=== PATIENT | female | born 1970 | race Caucasian/White ===

== ENCOUNTER 2017-06-26 10:16 | Emergency (ER) | payer OTHER ==
--- NOTE | 2017-06-26 11:04 | ED Physician Documentation ---
PD HPI FEMALE - Stated complaint Stated Complaint: CRAMPING - Chief complaint Chief Complaint: Abd Pain - History obtained from History obtained from: Patient, Family - History of Present Illness Timing - onset: Today Timing - duration: Hours Timing - details: Abrupt onset, Still present Pain level max: 10 Pain level max: 4 Associated symptoms: Pelvic pain. 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 No: Ovarian cysts Similar symptoms before: Diagnosis (dysmenorhera) Recently seen: Not recently seen - Additional information Additional information: Previously healthy 47-year-old female has had some issues with her menstruation being more painful than usual over the past year and with more bleeding than usual. This morning she had pain so severe it made her sweaty and she vomited. Her pain has reduced from a "13" to a 4 but she is mostly concerned about what this is. Review of Systems Constitutional: denies: Fever Eyes: denies: Decreased vision Ears: denies: Ear pain Nose: denies: Congestion Throat: denies: Sore throat Cardiac: denies: Chest pain / pressure, Palpitations Respiratory: denies: Dyspnea, Cough GI: reports: Abdominal Pain, Nausea, Vomiting. denies: Constipation, Diarrhea : denies: Dysuria, Frequency Skin: denies: Rash Musculoskeletal: denies: Neck pain, Back pain, Extremity pain PD PAST MEDICAL HISTORY - Past Medical History Past Medical History: No - Past Surgical History Past Surgical History: No - Present Medications Home Medications: Ambulatory Orders Medication Instructions Recorded Confirmed No Known Home Medications [No 06/26/17 06/26/17 Known Home Medications] - Allergies Allergies/Adverse Reactions: Allergies Allergy/AdvReac Type Severity Reaction Status Date / Time No Known Drug Allergies Allergy Verified 06/26/17 10:24 - Social History Does the pt smoke?: No Smoking Status: Never smoker Does the pt drink ETOH?: Yes Does the pt have substance abuse?: No - Immunizations Immunizations are current?: No Immunizations: TDAP >10years/unknown - POLST Patient has POLST: No PD ED PE NORMAL - Vitals Vital signs reviewed: Yes (hypertensive) - General General: Alert and oriented X 3, No acute distress, Well developed/nourished - HEENT HEENT: Atraumatic, PERRL, EOMI - Neck Neck: Supple, no meningeal sign, No bony TTP - Cardiac Cardiac: RRR, No murmur - Respiratory Respiratory: No respiratory distress - Abdomen Abdomen: Soft, Non tender - Back Back: No CVA TTP - Derm Derm: Normal color, Warm and dry, No rash - Extremities Extremities: No deformity, No edema - Neuro Neuro: No motor deficit, No sensory deficit Eye Opening: Spontaneous Motor: Obeys Commands Verbal: Oriented GCS Score: 15 - Psych Psych: Normal mood, Normal affect Results - Vitals Vitals: Vital Signs - 24 hr 06/26/17 06/26/17 06/26/17 10:20 10:34 13:40 Temperature 36.5 C Heart Rate 78 72 101 H Respiratory 18 18 16 Rate Blood Pressure 183/95 H 169/81 H 184/97 H O2 Saturation 100 99 100 06/26/17 14:55 Temperature Heart Rate 82 Respiratory 18 Rate Blood Pressure 161/90 H O2 Saturation 100 Oxygen O2 Source Room air - Labs Labs: Laboratory Tests 06/26/17 06/26/17 06/26/17 10:30 10:30 10:55 WBC 11.8 H RBC 3.88 L Hgb 11.3 L Hct 33.8 L MCV 86.9 MCH 29.1 MCHC 33.4 RDW 14.5 Plt Count 274 MPV 8.0 Neut # 10.2 H Lymph # 1.1 L Day # 0.3 Eos # 0.1 Baso # 0.1 Absolute Nucleated RBC 0.00 Nucleated RBC % 0.0 Sodium Potassium Chloride Carbon Dioxide Anion Gap BUN Creatinine Estimated GFR (MDRD) Glucose Calcium Total Bilirubin AST ALT Alkaline Phosphatase Total Protein Albumin Globulin Albumin/Globulin Ratio Lipase Urine Color LT RED Urine Clarity CLOUDY Urine pH 6.0 Ur Specific [place] >=1.030 H >=1.030 H Urine Protein NEGATIVE Urine Glucose (UA) NEGATIVE Urine Ketones NEGATIVE Urine Occult Blood LARGE Urine Nitrite NEGATIVE Urine Bilirubin NEGATIVE Urine Urobilinogen 0.2 (NORMAL) Ur Leukocyte Esterase NEGATIVE Urine RBC TNTC H Urine WBC 4-5 Ur Squamous Epith Cells RARE Squamous Urine Bacteria Rare Ur Microscopic Review INDICATED Urine Culture Comments NOT INDICATED Urine HCG, Qual NEGATIVE 06/26/17 10:55 WBC RBC Hgb Hct MCV MCH MCHC RDW Plt Count MPV Neut # Lymph # Day # Eos # Baso # Absolute Nucleated RBC Nucleated RBC % Sodium 138 Potassium 3.6 Chloride 102 Carbon Dioxide 24 Anion Gap 12.0 BUN 17 Creatinine 0.7 Estimated GFR (MDRD) 90 Glucose 132 H Calcium 8.5 Total Bilirubin 0.5 AST 18 ALT 16 Alkaline Phosphatase 60 Total Protein 7.4 Albumin 4.1 Globulin 3.3 Albumin/Globulin Ratio 1.2 Lipase 18 L Urine Color Urine Clarity Urine pH Ur Specific [place] Urine Protein Urine Glucose (UA) Urine Ketones Urine Occult Blood Urine Nitrite Urine Bilirubin Urine Urobilinogen Ur Leukocyte Esterase Urine RBC Urine WBC Ur Squamous Epith Cells Urine Bacteria Ur Microscopic Review Urine Culture Comments Urine HCG, Qual - Rads (name of study) pelvic ultrasound Radiology: Prelim report reviewed (Impression: 1. The endometrium appears thickened at 17 mm with a diffusely heterogeneous appearance. This could be physiologic or represent endometrial hyperplasia, not excluding an isoelectric endometrial polyp. 2. No Focal uterine fibroids. 3. Ovaries within normal limits.), EMP read indepedently, See rad report PD MEDICAL DECISION MAKING - ED course Complexity details: reviewed old records, reviewed results, re-evaluated patient , considered differential, d/w patient, d/w family ED course: 47-year-old female with acute menstrual cramping with a pain crisis this morning. This appears to have resolved ultrasound of the pelvis is without acute findings. Departure - Departure Disposition: 01 Home, Self Care Clinical Impression: Dysmenorrhea Condition: Stable Instructions: ED Cramping Menstrual Follow-Up: Lazara Lynch DO [Provider Admit Priv/Credential] - Comments: Today in the Emergency Department your blood pressure was elevated. This can happen from the stress of the visit itself, from a current illness or circumstance or from uncontrolled hypertension. If you take blood pressure medications take your usual mediations, have your blood pressure re-checked in an appropriate setting and follow up any elevation with your primary care doctor. Discharge Date/Time: 06/26/17 15:08
[2017-06-26 11:08] LABS: BASOPHILS # (AUTO) 0.1 10^3/uL (0.0-0.1); BASOPHILS % (AUTO) 0.7 %; EOSINOPHILS # (AUTO) 0.1 10^3/uL (0.0-0.7); EOSINOPHILS % (AUTO) 0.8 %; HGB - HEMOGLOBIN 11.3 g/dL (12.0-16.0); LYMPHOCYTES # (AUTO) 1.1 10^3/uL (1.5-3.5); LYMPHOCYTES % (AUTO) 9.4 %; MEAN CORPUSCULAR HEMOGLOBIN 29.1 pg (27.0-31.0); MEAN CORPUSCULAR HGB CONC 33.4 g/dL (32.0-36.0); MEAN CORPUSCULAR VOLUME 86.9 fL (81.0-99.0); MONOCYTES # (AUTO) 0.3 10^3/uL (0.0-1.0); MONOCYTES % (AUTO) 2.7 %; NEUTROPHILS # (AUTO) 10.2 10^3/uL (1.5-6.6); NEUTROPHILS % (AUTO) 86.4 %; PLT - PLATELET COUNT 274 10^3/uL (130-450); RED BLOOD COUNT 3.88 10^6/uL (4.20-5.40); RED CELL DISTRIBUTION WIDTH 14.5 % (12.0-15.0); WHITE BLOOD COUNT 11.8 x10^3/uL (4.8-10.8)
[2017-06-26 11:11] LABS: HCG UR QUAL NEGATIVE
[2017-06-26 11:21] LABS: ALBUMIN 4.1 g/dL (3.2-5.5); ALBUMIN/GLOBULIN RATIO 1.2 (1.0-2.2); BILIRUBIN,TOTAL 0.5 mg/dL (0.2-1.0); CALCIUM 8.5 mg/dL (8.5-10.3); CREATININE 0.7 mg/dL (0.4-1.0); TOTAL PROTEIN 7.4 g/dL (6.7-8.2)
[2017-06-26 11:40] LABS: BILIRUBIN,URINE NEGATIVE (NEGATIVE); CLARITY,URINE CLOUDY (CLEAR); GLUCOSE, URINE (UA) NEGATIVE (NEGATIVE); KETONES,URINE (UA) NEGATIVE (NEGATIVE); LEUKOCYTE ESTERASE, URINE NEGATIVE (NEGATIVE); NITRITE,URINE NEGATIVE (NEGATIVE); OCCULT BLOOD,URINE LARGE (NEGATIVE); PROTEIN,URINE NEGATIVE (NEGATIVE); UROBILINOGEN,URINE 0.2 (NORMAL) E.U./dL (NORMAL)
[2017-06-26 11:41] LABS: BACTERIA,URINE Rare /HPF (None Seen); RBC,URINE TNTC /HPF (0-5); SQUAMOUS EPITHELIAL CELL,UR RARE Squamous (<= Few)
--- NOTE | 2017-06-26 14:10 | Ultrasound Report ---
EXAM: PELVIC ULTRASOUND EXAM DATE: 06/26/2017 01:34 PM. CLINICAL HISTORY: Acute severe pelvic pain . COMPARISON: None. TECHNIQUE: Realtime transabdominal pelvic scan performed to identify the uterus and adnexa and as an overview of other pelvic structures, followed by transvaginal scan to provide greater detail of the u terus and adnexa, with static image documentation. FINDINGS: Uterus: 10.4 x 5 x 5.5 cm, volume 150 cc. Anteverted position. Size within normal limits. Masses: The myometrium is heterogeneous. No discrete measurable mass. Endometrium: 17 mm. The endometrium is heterogeneous with areas which are more hyperechoic. No discre te measurable polyp. Cervix: Unremarkable. Right Ovary: 3.2 x 2.0 x 2.7 cm, volume 9 cc. Follicle or cyst measures 1.9 x 1.1 x 1.3 cm. Blood shay w seen on Doppler. Left Ovary: 2.4 x 2.0 x 1.1 cm, volume 2.7 cc. Normal echotexture and blood flow. Free Fluid: Small Other: None. IMPRESSION: 1. The endometrium appears thickened at 17 mm with a diffusely heterogeneous appearance. This could b e physiologic or represent endometrial hyperplasia, not excluding an isoechoic endometrial polyp. 2. No focal uterine fibroids. 3. Ovaries within normal limits. [facility] Referring Provider Line: [phone] SITE ID: [id number]
[2017-06-26 14:56] VITALS: BP 161/90
== END 2017-06-26 15:08 | disposition home or self-care (01) ==
LOC: ED 10:16
DX: N94.6 Dysmenorrhea, unspecified (principal); R03.0 Elevated blood-pressure reading, without diagnosis of hypertension
CPT/HCPCS: 36415; 76830; 76856; 80053; 81001; 81003; 81025; 83690; 85025; 87086; 93976; 99283

== ENCOUNTER 2019-09-09 11:01 | Emergency (ER) | payer OTHER ==
--- NOTE | 2019-09-09 11:30 | ED Physician Documentation ---
PD HPI URI - Stated complaint Stated Complaint: SOA/COUGH - Chief complaint Chief Complaint: Resp - History obtained from History obtained from: Patient - History of Present Illness Timing - onset: How many weeks ago (1) Timing duration: Weeks (She has had body aches with subsequent non-nausea fevers some diarrhea and cough progressing over the last week with no more notable s hortness of breath the last day or 2. She states she has had less urine output than usual. She is still try to take some fluids. She got significantly more short of breath with activity today. Her is also sick with coded and was tested positive and he has had symptoms about 2-1/2 weeks and also noticed some increasing cough the last day or 2.) Timing details: Gradual onset, Still present Associated symptoms: Fever, Chills, Nasal congestion, Dry cough, Dyspnea, NVD (Nausea and some diarrhea without any vomiting). No: Sore throat, Chest pain, Bilateral edema Contributing factors: Sick contact ( is tested COVID positive about 2 weeks ago.) Improves by: Rest, Medication (not with Mucinex and Tylenol) Worsened by: Activity, Breathing Similar symptoms before: Has not had sx before Review of Systems Constitutional: reports: Fever, Chills Nose: reports: Congestion Cardiac: denies: Chest pain / pressure, Palpitations, Pedal edema, Calf pain Respiratory: reports: Dyspnea, Cough GI: reports: Nausea, Diarrhea. denies: Abdominal Pain, Vomiting : denies: Dysuria Skin: denies: Rash Neurologic: reports: Generalized weakness. denies: Focal weakness, Numbness, Near syncope, Altered mental status PD PAST MEDICAL HISTORY - Past Medical History Cardiovascular: None Respiratory: None Neuro: None Endocrine/Autoimmune: None - Past Surgical History Past Surgical History: No - Present Medications Home Medications: Ambulatory Orders Medication Instructions Recorded Confirmed Albuterol Sulfate [Albuterol 2 puffs IH QID #1 hfa.aer.ad 09/09/19 Sulfate Hfa] Benzonatate [Tessalon Perle] 100 - 200 mg PO TID PRN #30 capsule 09/09/19 Doxycycline Monohydrate 100 mg PO BID #14 tablet 09/09/19 Ondansetron Odt [Zofran] 4 mg TL Q6H PRN #15 tablet 09/09/19 guaiFENesin/CODEINE [Robitussin AC] 10 ml PO Q6H PRN #240 ml 09/09/19 - Allergies Allergies/Adverse Reactions: Allergies Allergy/AdvReac Type Severity Reaction Status Date / Time No Known Drug Allergies Allergy Verified 09/09/19 11:17 - Living Situation Living Situation: reports: With spouse/s.o. Living Arrangement: reports: At home - Social History Does the pt smoke?: No Smoking Status: Never smoker Does the pt drink ETOH?: Yes Does the pt have substance abuse?: No - Family History Family history: reports: CAD. denies: Venous thromboembolism - Immunizations Immunizations are current?: No Immunizations: TDAP >10years/unknown - POLST Patient has POLST: No PD ED PE NORMAL - Vitals Vital signs reviewed: Yes - General General: Alert and oriented X 3, Well developed/nourished, Other (Appears slightly anxious with breathing with some prolonged expiratory phase initial oxygenation is 88% on room air.) - HEENT HEENT: Moist mucous membranes, Pharynx benign - Neck Neck: Supple, no meningeal sign, No adenopathy - Cardiac Cardiac: RRR, No murmur - Respiratory Respiratory: No: Clear bilaterally (Generally not that bad sounding with some expiratory wheezes noted throughout. No crackles at the bases.) - Abdomen Abdomen: Soft, Non tender - Back Back: No CVA TTP - Derm Derm: Normal color, Warm and dry - Extremities Extremities: No deformity, No tenderness to palpate, Normal ROM s pain, No edema, No calf tenderness / cord - Neuro Neuro: Alert and oriented X 3, No motor deficit, Normal speech Eye Opening: Spontaneous Motor: Obeys Commands Verbal: Oriented GCS Score: 15 Results - Vitals Vitals: Vital Signs - 24 hr 09/09/19 09/09/19 09/09/19 11:10 11:17 12:04 Temperature 38.3 C H Heart Rate 93 Respiratory 18 Rate Blood Pressure 171/90 H O2 Saturation 88 L 99 98 09/09/19 09/09/19 12:40 14:00 Temperature Heart Rate 80 87 Respiratory 20 17 Rate Blood Pressure 167/71 H O2 Saturation 96 Oxygen O2 Source Room air Oxygen Flow Rate 2 - Labs Labs: Laboratory Tests 09/09/19 09/09/19 09/09/19 11:40 11:40 11:40 WBC 5.0 RBC 3.82 L Hgb 10.3 L Hct 33.5 L MCV 87.7 MCH 27.0 MCHC 30.7 L RDW 13.9 Plt Count 287 MPV 9.6 Neut # (Auto) 3.4 Lymph # (Auto) 1.0 L [place] # (Auto) 0.3 Eos # (Auto) 0.3 Baso # (Auto) 0.0 Absolute Nucleated RBC 0.00 Nucleated RBC % 0.0 Manual Slide Review Indicated WBC Morphology NORMAL APPEARANCE Platelet Estimate NORMAL (130-450,000) Platelet Morphology NORMAL APPEARANCE RBC Morph Micro Appear NORMAL APPEARANCE Sodium 139 Potassium 3.8 Chloride 106 Carbon Dioxide 25 Anion Gap 8.0 BUN 11 Creatinine 0.7 Estimated GFR (MDRD) 89 Glucose 108 H Calcium 8.2 L Magnesium 1.9 Total Bilirubin 0.4 AST 23 ALT 20 Alkaline Phosphatase 53 Troponin I High Sens 8.2 B-Natriuretic Peptide Total Protein 7.2 Albumin 3.2 Globulin 4.0 Albumin/Globulin Ratio 0.8 L Lipase 19 L 09/09/19 11:40 WBC RBC Hgb Hct MCV MCH MCHC RDW Plt Count MPV Neut # (Auto) Lymph # (Auto) [place] # (Auto) Eos # (Auto) Baso # (Auto) Absolute Nucleated RBC Nucleated RBC % Manual Slide Review WBC Morphology Platelet Estimate Platelet Morphology RBC Morph Micro Appear Sodium Potassium Chloride Carbon Dioxide Anion Gap BUN Creatinine Estimated GFR (MDRD) Glucose Calcium Magnesium Total Bilirubin AST ALT Alkaline Phosphatase Troponin I High Sens B-Natriuretic Peptide 21 Total Protein Albumin Globulin Albumin/Globulin Ratio Lipase - Rads (name of study) chest xray Radiology: Prelim report reviewed (Patchy diffuse infiltrates with groundglass appearance consistent with go Covid pneumonitis. No effusions no pneumothorax.), See rad report PD MEDICAL DECISION MAKING - ED course Complexity details: re-evaluated patient (Her breathing is much more relaxed and her oxygenation is 94 to 96% on room air for the last half hour after the inhaler and meds. She is feeling less nauseated but still some. She feels less general weakness. She was allowed to walk around the room a little bit and she maintained her oxygenation at the same level of 94 to 96% without supplemental. At this point she appears stable for discharge and her preference would be to go home. I talked with her about really having a low threshold for returning if she is having worse trouble breathing as she may be in that escalation phase of the lung inflammation. See how she does in the next 1 or 2 days.), considered differential, d/w patient Departure - Departure Disposition: 01 Home, Self Care Clinical Impression: Pneumonia due to COVID-19 virus Dyspnea Qualifiers: Dyspnea type: shortness of breath Qualified Code(s): R06.02 - Shortness of breath Condition: Stable Record reviewed to determine appropriate education?: Yes Instructions: ED URI Viral W Wheezing, COVID-19 [facility] Prescriptions: Albuterol Sulfate [Albuterol Sulfate Hfa] 2 puffs IH QID #1 hfa.aer.ad Benzonatate [Tessalon Perle] 100 - 200 mg PO TID PRN #30 capsule PRN Reason: Cough Doxycycline Monohydrate 100 mg PO BID #14 tablet guaiFENesin/CODEINE [Robitussin AC] 10 ml PO Q6H PRN #240 ml PRN Reason: Cough Ondansetron Odt [Zofran] 4 mg TL Q6H PRN #15 tablet PRN Reason: Nausea / Vomiting Comments: Your symptoms and chest x-ray are consistent with COVID pneumonia. Given your worsening symptoms, it may be the pneumonitis inflammation worsening. At times it can be a secondary bacterial infection as well. Therefore will add doxycycline antibiotic just in case of a bacterial component. Use the albuterol inhaler 2 puffs or 3 puffs 4 times a day regularly for the next several days and extra times as needed. You can continue with the Mucinex for congestion. Add Tessalon/benzonatate as needed for cough. You can also add codeine cough medicine if needed. Ondansetron every 4-6 hours if needed for nausea. Try to stay well-hydrated. Food as tolerated. I would anticipate plateauing and improvement of your symptoms over the next few days and considerable improvement over the next week. Recheck if not improving well over the next couple of days. Have a low threshold for returning to the ER if you are feeling worse. Your oxygenation level was low coming in but seems to have improved with the inhaler and medicines. However the lung function might worsen to where you need more persistent oxygen in which case you might need to be hospitalized.
[2019-09-09] MEDS ORDERED: ALBUTEROL 1 PUFF INH STA (12:11)
[2019-09-09] MEDS ORDERED: SODIUM CHLORIDE 0.9% 1,000 ML IV ONE (12:11)
[2019-09-09] MEDS ORDERED: ACETAMINOPHEN 325 MG TABLET PO STA (12:11)
[2019-09-09] MEDS ORDERED: ONDANSETRON 4 MG/2 ML VIAL IVP STA (12:11)
[2019-09-09] MEDS ORDERED: KETOROLAC 30 MG/ML VIAL IVP STA (12:13)
[2019-09-09] MEDS ORDERED: BENZONATATE 100 MG CAPSULE PO STA (12:13)
[2019-09-09] MEDS ORDERED: guaiFENesin/CODEINE 5 ML UDC PO STA (12:14)
[2019-09-09 12:22] LABS: BASOPHILS % (AUTO) 0.4 %; EOSINOPHILS # (AUTO) 0.3 10^3/uL (0.0-0.7); EOSINOPHILS % (AUTO) 5.4 %; HGB - HEMOGLOBIN 10.3 g/dL (12.0-16.0); LYMPHOCYTES % (AUTO) 20.9 %; MEAN CORPUSCULAR HGB CONC 30.7 g/dL (32.0-36.0); MEAN CORPUSCULAR VOLUME 87.7 fL (81.0-99.0); MEAN PLATELET VOLUME 9.6 fL (7.9-10.8); MONOCYTES # (AUTO) 0.3 10^3/uL (0.0-1.0); MONOCYTES % (AUTO) 5.2 %; NEUTROPHILS # (AUTO) 3.4 10^3/uL (1.5-6.6); NEUTROPHILS % (AUTO) 67.7 %; PLT - PLATELET COUNT 287 10^3/uL (130-450); RED BLOOD COUNT 3.82 10^6/uL (4.20-5.40); RED CELL DISTRIBUTION WIDTH 13.9 % (12.0-15.0)
[2019-09-09 12:35] LABS: ALBUMIN 3.2 g/dL (3.2-5.5); ALBUMIN/GLOBULIN RATIO 0.8 (1.0-2.2); BILIRUBIN,TOTAL 0.4 mg/dL (0.2-1.0); CALCIUM 8.2 mg/dL (8.5-10.3); CREATININE 0.7 mg/dL (0.4-1.0); MAGNESIUM 1.9 mg/dL (1.7-2.8); TOTAL PROTEIN 7.2 g/dL (6.7-8.2)
[2019-09-09 12:47] LABS: PLATELET ESTIMATE, MANUAL NORMAL (130-450,000) (NORMAL); PLATELET MORPHOLOGY NORMAL APPEARANCE (NORMAL)
[2019-09-09 12:48] LABS: RBC MORPHOLOGY (MULTIPLE) NORMAL APPEARANCE (NORMAL)
--- NOTE | 2019-09-09 13:04 | XRAY Report ---
Reason: cough and dyspnea Procedure Date: 09/09/2019 Accession Number: [id number] / [id number] Procedure: XR - Chest 1 View X-Ray CPT Code: 10417 Final Report FULL RESULT: EXAM: CHEST RADIOGRAPHY EXAM DATE: 09/09/2019 12:29 PM. CLINICAL HISTORY: Cough and dyspnea. COMPARISON: None. TECHNIQUE: 1 view. FINDINGS: Lungs/Pleura: Abnormal patchy airspace disease seen in both lungs. No pleural effusion. Mediastinum: Within exam limitations, the cardiomediastinal contour is normal. Other: None. IMPRESSION: 1. Abnormal patchy airspace disease in both lungs. No pleural effusions. [facility]
[2019-09-09 14:01] VITALS: BP 167/71
[2019-09-09] MEDS ORDERED: PROMETHAZINE INJ 12.5 MG in SODIUM CHLORIDE 0.9% 50 ML IV STA (14:01)
== END 2019-09-09 15:08 | disposition home or self-care (01) ==
LOC: ED 11:01
DX: U07.1 COVID-19 (principal); J12.89 Other viral pneumonia; R06.02 Shortness of breath
CPT/HCPCS: 36415; 71045; 80053; 83690; 83735; 83880; 84484; 85025; 94640; 94664; 96361; 96365; 96375; 99284; 99285; A9270; J7040

== ENCOUNTER 2020-11-06 09:55 | Outpatient (CLI) | payer OTHER ==
--- NOTE | 2020-11-06 10:44 | XRAY Report ---
PROCEDURE: Chest 2 View X-Ray INDICATIONS: AMB TECHNIQUE: 2 view(s) of the chest. COMPARISON: 09/09/2019 chest x-ray FINDINGS: Surgical changes and devices: None. Lungs and pleura: No pleural effusions or pneumothorax. Lungs are clear. Mediastinum: Mediastinal contours are normal. Heart size is enlarged. Bones and chest wall: No suspicious bony abnormalities. Soft tissues appear unremarkable. IMPRESSION: 1. Cardiomegaly. 2. No acute process. Reviewed by: Svetlana Galeas MD on 11/06/2020 10:43 AM PDT Approved by: Svetlana Galeas MD on 11/06/2020 10:43 AM PDT Station ID: [id number]
== END 2020-11-06 23:59 | disposition home or self-care (01) ==
LOC: DI.N 09:55
PROVIDERS: ATTEND Family Medicine
DX: I51.7 Cardiomegaly (principal)

== ENCOUNTER 2020-11-07 09:25 | Outpatient (CLI) | payer OTHER ==
[2020-11-07 09:50] LABS: BASOPHILS # (AUTO) 0.1 10^3/uL (0.0-0.1); BASOPHILS % (AUTO) 1.2 %; EOSINOPHILS # (AUTO) 0.3 10^3/uL (0.0-0.7); EOSINOPHILS % (AUTO) 3.9 %; HCT - HEMATOCRIT 21.1 % (37.0-47.0); LYMPHOCYTES # (AUTO) 1.7 10^3/uL (1.5-3.5); LYMPHOCYTES % (AUTO) 26.5 %; MEAN CORPUSCULAR HEMOGLOBIN 24.4 pg (27.0-31.0); MEAN CORPUSCULAR HGB CONC 28.4 g/dL (32.0-36.0); MEAN CORPUSCULAR VOLUME 85.8 fL (81.0-99.0); MEAN PLATELET VOLUME 9.1 fL (7.9-10.8); MONOCYTES # (AUTO) 0.3 10^3/uL (0.0-1.0); MONOCYTES % (AUTO) 4.8 %; NEUTROPHILS # (AUTO) 4.1 10^3/uL (1.5-6.6); NEUTROPHILS % (AUTO) 63.1 %; PLT - PLATELET COUNT 378 10^3/uL (130-450); RED BLOOD COUNT 2.46 10^6/uL (4.20-5.40); RED CELL DISTRIBUTION WIDTH 15.9 % (12.0-15.0); WHITE BLOOD COUNT 6.4 x10^3/uL (4.8-10.8)
[2020-11-07 10:06] LABS: ALBUMIN 3.6 g/dL (3.2-5.5); ALKALINE PHOSPHATASE 54 IU/L (42-121); ALT ALANINE AMINOTRANSFERASE 16 IU/L (10-60); AST ASPARTATE AMINOTRANSFERASE 15 IU/L (10-42); BILIRUBIN,TOTAL 0.5 mg/dL (0.2-1.0); BUN - BLOOD UREA NITROGEN 17 mg/dL (6-20); CALCIUM 7.9 mg/dL (8.5-10.3); CARBON DIOXIDE - CO2 22 mmol/L (21-32); CHLORIDE 105 mmol/L (101-111); CHOL/HDL RATIO 2.4 (<4.4); CHOLESTEROL 173 mg/dL; CREATININE 0.8 mg/dL (0.4-1.0); GFR - MDRD 76 (>89); GLUCOSE 118 mg/dL (70-100); HDL CHOLESTEROL 72 mg/dL; LDL CHOLESTEROL,CALCULATED 83 mg/dL; LDL/HDL RATIO 1.2 (<4.4); SODIUM 134 mmol/L (135-145); TOTAL PROTEIN 7.1 g/dL (6.7-8.2); TRIGLYCERIDES 90 mg/dL; VLDL CHOLESTEROL 18 mg/dL
[2020-11-07 10:18] LABS: THYROID STIMULATING HORMONE 3.87 uIU/mL (0.34-5.60)
== END 2020-11-07 09:26 | disposition home or self-care (01) ==
LOC: LAB 09:25
PROVIDERS: ATTEND Family Medicine
DX: I11.9 Hypertensive heart disease without heart failure (principal); R00.0 Tachycardia, unspecified; R06.02 Shortness of breath; F41.9 Anxiety disorder, unspecified
CPT/HCPCS: 36415; 80053; 80061; 83721; 84443; 85025

== ENCOUNTER 2020-11-07 12:02 | Observation (INO) | payer OTHER ==
--- NOTE | 2020-11-07 12:39 | ED Physician Documentation ---
History of Present Illness - Stated complaint Stated Complaint: CRITICAL LAB/SENT BY DR - Chief complaint Chief Complaint: General - History obtained from History obtained from: Patient - Additonal information Additional information: 50-year-old woman with past medical history of high blood pressure, Covid last year, abnormal uterine bleeding currently going through menopause, presents with severe anemia on outpatient lab work done by the walk-in clinic Dr. Ratliff. Patient reports for the past several months she has had dyspnea on exertion and fatigue and she went to walk-in to have it evaluated and was told to come here due to abnormal lab value. She denies lightheadedness, syncope, rectal bleeding, hemoptysis or other issues. She does report that she is currently menstruating and has been straining for the past 2 months, often heavily. At its peak, she is going through 12 pads a day. At present she has used 3 pads this morning. denies other symptoms. Review of Systems Ten Systems: 10 systems reviewed and negative PD PAST MEDICAL HISTORY - Past Medical History Cardiovascular: None Respiratory: None Neuro: None Endocrine/Autoimmune: None - Past Surgical History Past Surgical History: No - Present Medications Home Medications: Ambulatory Orders Medication Instructions Recorded Confirmed Albuterol Sulfate [Albuterol 2 puffs IH QID #1 hfa.aer.ad 09/09/19 Sulfate Hfa] Benzonatate [Tessalon Perle] 100 - 200 mg PO TID PRN #30 capsule 09/09/19 Doxycycline Monohydrate 100 mg PO BID #14 tablet 09/09/19 Ondansetron Odt [Zofran] 4 mg TL Q6H PRN #15 tablet 09/09/19 guaiFENesin/CODEINE [Robitussin AC] 10 ml PO Q6H PRN #240 ml 09/09/19 - Allergies Allergies/Adverse Reactions: Allergies Allergy/AdvReac Type Severity Reaction Status Date / Time No Known Drug Allergies Allergy Verified 11/07/20 12:16 - Social History Does the pt smoke?: No Smoking Status: Never smoker Does the pt drink ETOH?: Yes Does the pt have substance abuse?: No - Immunizations Immunizations are current?: No Immunizations: TDAP >10years/unknown - POLST Patient has POLST: No PD ED PE NORMAL - Vitals Vital signs reviewed: Yes - General General: Alert and oriented X 3, No acute distress, Well developed/nourished - HEENT HEENT: Atraumatic, PERRL, EOMI - Neck Neck: Supple, no meningeal sign - Cardiac Cardiac: RRR - Respiratory Respiratory: No respiratory distress, Clear bilaterally - Abdomen Abdomen: Non tender, Non distended - Derm Derm: Normal color, Warm and dry - Extremities Extremities: No deformity - Neuro Neuro: Alert and oriented X 3 - Psych Psych: Normal mood, Normal affect Results - Vitals Vitals: Vital Signs - 24 hr 11/07/20 12:07 Temperature 36.8 C Heart Rate 90 Respiratory 18 Rate Blood Pressure 184/113 H O2 Saturation 99 Oxygen O2 Source Room air PD MEDICAL DECISION MAKING - ED course ED course: Discussed with And show to for admission to observation for blood transfusion and [employer] consult. Patient agreeable to stay. Departure - Departure Disposition: ED Place in Observation Clinical Impression: Symptomatic anemia, History of heavy vaginal bleeding Condition: Stable
[2020-11-07] MEDS ORDERED: ACETAMINOPHEN 325 MG TABLET PO PRN (12:51)
[2020-11-07] MEDS ORDERED: IBUPROFEN 600 MG TABLET PO PRN (12:51)
[2020-11-07] MEDS ORDERED: SODIUM CHLORIDE FLUSH 0.9% 10 ML SYRINGE IVP PRN (12:51)
[2020-11-07 12:59] LABS: BASOPHILS # (AUTO) 0.1 10^3/uL (0.0-0.1); BASOPHILS % (AUTO) 1.5 %; EOSINOPHILS # (AUTO) 0.2 10^3/uL (0.0-0.7); EOSINOPHILS % (AUTO) 2.8 %; HCT - HEMATOCRIT 20.9 % (37.0-47.0); LYMPHOCYTES # (AUTO) 2.2 10^3/uL (1.5-3.5); LYMPHOCYTES % (AUTO) 27.1 %; MEAN CORPUSCULAR HEMOGLOBIN 24.6 pg (27.0-31.0); MEAN CORPUSCULAR HGB CONC 29.2 g/dL (32.0-36.0); MEAN CORPUSCULAR VOLUME 84.3 fL (81.0-99.0); MEAN PLATELET VOLUME 10.1 fL (7.9-10.8); MONOCYTES # (AUTO) 0.5 10^3/uL (0.0-1.0); NEUTROPHILS # (AUTO) 5.1 10^3/uL (1.5-6.6); NEUTROPHILS % (AUTO) 62.2 %; PLT - PLATELET COUNT 421 10^3/uL (130-450); RED BLOOD COUNT 2.48 10^6/uL (4.20-5.40); RED CELL DISTRIBUTION WIDTH 15.9 % (12.0-15.0); WHITE BLOOD COUNT 8.2 x10^3/uL (4.8-10.8)
[2020-11-07 13:00] LABS: INR 1.2 (0.8-1.2); PT - PROTHROMBIN TIME 12.8 secs (9.9-12.6)
[2020-11-07 13:01] LABS: HGB - HEMOGLOBIN 6.1 g/dL (12.0-16.0)
[2020-11-07 13:08] LABS: ALBUMIN 3.6 g/dL (3.2-5.5); ALBUMIN/GLOBULIN RATIO 1.1 (1.0-2.2); BILIRUBIN,TOTAL 0.4 mg/dL (0.2-1.0); CREATININE 0.7 mg/dL (0.4-1.0); POTASSIUM 3.8 mmol/L (3.5-5.0)
[2020-11-07] MEDS ORDERED: ONDANSETRON 4 MG/2 ML VIAL IVP PRN (13:56)
[2020-11-07] MEDS ORDERED: METOPROLOL SUCCINATE 25 MG TABLET PO SCH ×2 (14:00→14:10)
[2020-11-07] MEDS ORDERED: hydrALAZINE INJ 20 MG/ML VIAL IVP PRN ×2 (14:01→15:19)
[2020-11-07 14:02] LABS: B. PARAPERTUSSIS- RESP PCR PAN NOT DETECTED; B. PERTUSSIS- RESP PCR PANEL NOT DETECTED; C. PNEUMONIAE- RESP PCR PANEL NOT DETECTED; CORONAVIRUS 229E-RESP PCR NOT DETECTED; CORONAVIRUS HKU1-RESP PCR NOT DETECTED; CORONAVIRUS NL63-RESP PCR NOT DETECTED; CORONAVIRUS OC43-RESP PCR NOT DETECTED; HUMAN METAPNEUMOVIRUS NOT DETECTED; INFLUENZA A- RESP PCR PANEL NOT DETECTED; INFLUENZA B - RESP PCR PANEL NOT DETECTED; M. PNEUMONIAE- RESP PCR PANEL NOT DETECTED; PARAINFLUENZA VIRUS 1 NOT DETECTED; PARAINFLUENZA VIRUS 2 NOT DETECTED; PARAINFLUENZA VIRUS 3 NOT DETECTED; PARAINFLUENZA VIRUS 4 NOT DETECTED; RHINOVIRUS/ENTEROVIRUS NOT DETECTED; RSV- RESP PCR PANEL NOT DETECTED; SARS-CoV-2 -RESP PCR PANEL NOT DETECTED
--- NOTE | 2020-11-07 14:04 | HISTORY & PHYSICAL EXAMINATION ---
Chief Complaint - Chief Complaint Chief Complaint: SENT BY for CRITICAL LAB History of Present Illness - Admitted From Admitted From:: ER - History Obtained From Records Reviewed: [facility] History obtained from: pt Exam Limitations: no - History of Present Illness HPI Comment/Other: This is a 50-year-old female with past medical history of high blood pressure, Covid positive on last year, Menorrhagia. pt was sent by walk-in Clinic for her low HGB. pt report she usually had heavy menstrual bleeding and needed 12 pads a day. pt report she is in the going through menopause but in the recently two months she continue to have on and off menstrual bleeding and not stopped and she felt very tired as well. Yesterday she went to walk-in Clinic to check it out, and had blood test. pt was informed to go to ER for her abnormal lab value. pt was found to have HGB 6.1. pt denies chest pain, headache, fever, chill, abdominal pain, nausea, vomiting or diarrhea. Discussed the care goal with the patient, patient requests full code History - Past Medical History Cardiovascular: reports: None Respiratory: reports: None Neuro: reports: None Endocrine/Autoimmune: reports: None MRSA Hx?: No - Family & Social History Family History: Mother: Alive and Well, Father: Alive and Well Family History Comment/Other: Patient report both her parents are alive, her father has 73 years old with prostate and kidney problem. Her mother has 70 years old with pre-diabetic Social History Notes: Patient denies history of cigarette smoking, alcohol or drug issue - POLST Patient has POLST: No Meds/Allgy - Home Medications Home Medications: Ambulatory Orders Medication Instructions Recorded Confirmed Metoprolol Succinate [Toprol Xl] 25 mg PO DAILY 11/07/20 11/07/20 - Allergies Allergies/Adverse Reactions: Allergies Allergy/AdvReac Type Severity Reaction Status Date / Time No Known Drug Allergies Allergy Verified 11/07/20 12:16 Review of Systems - Constitutional Constitutional: reports: Fatigue. denies: Fever, Chills, Weakness, Poor appetite, Diaphoresis - Eyes Eyes: denies: Pain, Blurred vision, Field loss, Vision loss - Ears, Nose & Throat Ears, Nose & Throat: denies: Ear pain, Vertigo, Nosebleeds, Bleeding gums - Cardiovascular Cariovascular: denies: Irregular heart rate, Palpitations, Chest pain, Edema, Lightheadedness, Syncope, Exertional dyspnea, Decr. exercise tolerance - Respiratory Respiratory: denies: Cough, Sputum production, Wheezing, Hemoptysis, Orthopnea, SOB at rest, SOB with exertion - Gastrointestinal Gastrointestinal: denies: Abdominal pain, Diarrhea, Rectal bleeding, Black stools, Bloody stools, Nausea, Vomiting - Genitourinary Genitourinary: denies: Dysuria, Urgency, Hematuria, Incontinence - Musculoskeletal Musculoskeletal: denies: Muscle pain, Muscle aches, Limited range of motion - Integumentary Integumentary: denies: Rash, Lesions, Lumps - Neurological Neurological: denies: General weakness, Focal weakness, Headache, Dizziness, Numbness, Memory problems, Pre-existing deficit, Abnormal gait, Seizures, Incoordination, Slurred speech - Psychiatric Psychiatric: denies: Depression, Delusions - Endocrine Endocrine: denies: Polyuria, Polyphagia - Hematologic/Lymphatic Hematologic/Lymphatic: denies: Anemia, Blood clots Prior Level of Functionality: Patient is fully independent in the home Exam - Vital Signs Vital Signs: Vital Signs x48h Temp Pulse Resp BP Pulse Ox 11/07/20 12:07 36.8 C 90 18 184/113 H 99 - Physical Exam General Appearance: positive: No acute distress, Alert. negative: Lethargic Eyes Bilateral: positive: Normal inspection, PERRL, No lid inflammation ENT: positive: ENT inspection nml, No signs of dehydration. negative: Purulent nasal drainage Neck: positive: Nml inspection, Trachea midline. negative: Thyromegaly, Tracheal deviation Respiratory: positive: Chest non-tender, No respiratory distress, Breath sounds nml. negative: Wheezes, Rales Cardiovascular: positive: Regular rate & rhythm, No murmur. negative: Tachycardia, Bradycardia, Systolic murmur, Diastolic murmur Peripheral Pulses: positive: 2+ Abdomen: positive: Non-tender, Nml bowel sounds, No distention. negative: Tenderness Back: positive: Nml inspection. negative: CVA tenderness (R), CVA tenderness (L) Skin: positive: Color nml, Warm, Dry. negative: Cyanosis, Diaphoresis, Pallor Extremities: positive: Non-tender, Full ROM, Nml appearance. negative: Calf tenderness Neurologic/Psychiatric: positive: Oriented x3, Motor nml, Sensation nml, Mood/affect nml. negative: Weakness, Sensory loss, Facial droop, Slurred/abnml speech, Depressed mood/affect Sepsis Event Note (H) - Evaluation Current Stage of Sepsis: Ruled out Conclusion/Plan - Problem List (1) Symptomatic anemia Conclusion/Plan: Patient reported she feel really tired for 2 months. She was found to have hemoglobin 6.1 on today. She reported she had abnormal menstruation for about a 2 months. MCV is 84, we will transfusion blood for patient, once Provera for pt, we will have anemia study for patient. We will have H&H to monitor hemoglobin. We will consult with [employer] [facility]. (2) Menorrhagia Conclusion/Plan: Patient report she had constant menstruation for about 2 months. HGB is 6.1 on today. pt was given once Provera, we will Consult with [facility] [facility]. Per [employer] [facility], we will keep patient on n.p.o. Order ultrasound of pelvis and Transvaginal. we will followup with [employer] [facility]. (3) HTN (hypertension) Conclusion/Plan: Patient has a history of hypertension, will resume home metoprolol, add Hydralazine Intravenous as needed - Lab Results Fish Bones: 11/07/20 12:40 11/07/20 12:40 Core Measures - Anticipated LOS I expect patient to be DC'd or transferred within 96 hours.: Yes - DVT/VTE - Prophylaxis VTE/DVT Device ordered at admit?: Yes VTE/DVT Prophylaxis med ordered at admit?: Yes
[2020-11-07 15:22] LABS: ABSOLUTE RETICS # AUTO 0.051 10^6/uL (0.020-0.110); RED BLOOD COUNT 2.46 10^6/uL (4.20-5.40); RETICULOCYTE COUNT % (AUTO) 2.06 % (0.5-2.3)
[2020-11-07 15:53] LABS: % IRON SATURATION 3 % (20-50); IRON 18 ug/dL (28-170); TOTAL IRON BINDING CAPACITY 532 ug/dL (250-450); TRANSFERRIN 380 mg/dL (192-382)
[2020-11-07] MEDS: SODIUM CHLORIDE FLUSH 0.9% 10 ML SYRINGE IVP SCH (16:43)
[2020-11-07] MEDS ORDERED: CYANOCOBALAMIN 1,000 MCG/ML VIAL IM ONE (16:50)
[2020-11-07] MEDS: amLODIPine 5 MG TABLET PO SCH (17:21)
[2020-11-07] MEDS: FERROUS SULFATE 325 MG TABLET PO SCH (17:21)
--- NOTE | 2020-11-07 18:22 | Ultrasound Report ---
PROCEDURE: Pelvic Complete INDICATIONS: menometrorrhagia TECHNIQUE: Real-time transabdominal and transvaginal scanning was performed of the pelvic organs, with image doc umentation. COMPARISON: None. FINDINGS: Uterus: Uterus is anteverted and normal in size at 12.6 x 7.5 x 5.5 cm. Volume of 264 cc. No fibroid s seen. Endometrium measures 14 mm in combined thickness. Homogeneous appearance. Ovaries: Within normal limits. Right ovary measures 4 x 2.4 x 2.3 cm, volume of 12 cc. -Right ovarian simple cyst measuring 2 cm. Left ovary measures 5.4 x 3.7 x 3.7 cm, volume of 39 cc. -Left ovarian simple cyst measuring 3.2 cm. Other: No free pelvic fluid. IMPRESSION: 1. Prominent uterus. No fibroids seen. 2. Homogeneous endometrium measures 1.4 cm. 3. Ovaries are within normal limits. Reviewed by: Hansel Purcell MD on 11/07/2020 6:21 PM PDT Approved by: Hansel Purcell MD on 11/07/2020 6:21 PM PDT Station ID: [id number]
--- NOTE | 2020-11-07 20:11 | CONSULTATION NOTE ---
Referring Provider Name of Referring Provider:: Dr. Farris Consult Date: 11/07/20 Chief Complaint - Chief Complaint Chief Complaint: Severe menorrhagia with presumed acute blood loss anemia History of Present Illness - Admitted From Admitted From:: Er - History Obtained From History obtained from: patient - History of Present Illness HPI Comment/Other: Patient is a 50 yo who presented from the walk in clinic with severe anemia secondary to ongoing DUB. Patient reports that she continues to have monthly menses but cycles have become irregular and heavy. Has been soaking a pad an hour for several days. Has gone through three pads this am. Also has severe lower back pain prior to onset of mesnes. She is actively bleeding at present. Has been bleeding for 2 days. Had no bleeding two days prior to that. Had been bleeding daily for an unclear period of time prior to the 2 day break. Presented to [facility] with severe fatigue and found to have a HCT of 20. Seen [facility] yesterday for SOB, fatigue, and malaise. Was diagnosed with HTN and started on antihypertensives yesterday. Unsure of name, thinks of was metoprolol. Had EKG and CXR. Denies any other significant PMH. Has been avoiding medical care. Thinks her last pap smear was 20 years ago. Had an abnormal pap smear with normal follow-up. Reports she had a pelvic us about 2 years ago but nothing was done about presumably normal findings, per her report. No STIs. PMH: HTN PSH: none OBHX: ; x2 Remote hx of abnormal pap smear Last pap 2000, wnl No STIs SOC HX: Lives in [place] with , son, and 2 grandchildren. Works for [employer] as the [employer] T: none E: MideoMe every other day D: none FAMILY HX: DM: none Cancer: none CVD: GF Mother: anemia and hypoglycemia Father: renal failure 2/2 prostate issues History - Past Medical History Cardiovascular: reports: None Respiratory: reports: None Neuro: reports: None Endocrine/Autoimmune: reports: None MRSA Hx?: No - Family & Social History Family History: Mother: Alive and Well, Father: Alive and Well Family History Comment/Other: Patient report both her parents are alive, her father has 73 years old with prostate and kidney problem. Her mother has 70 years old with pre-diabetic Social History Notes: Patient denies history of cigarette smoking, alcohol or drug issue - POLST Patient has POLST: No Meds/Allgy - Home Medications Home Medications: Ambulatory Orders Medication Instructions Recorded Confirmed Metoprolol Succinate [Toprol Xl] 25 mg PO DAILY 11/07/20 11/07/20 - Allergies Allergies/Adverse Reactions: Allergies Allergy/AdvReac Type Severity Reaction Status Date / Time No Known Drug Allergies Allergy Verified 11/07/20 12:16 Review of Systems - Other Findings Other Findings: As per HPI, otherwise remaining systems are negative. Exam - Vital Signs Reviewed Vital Signs: Yes Vital Signs: Vital Signs x48h Temp Pulse Pulse Resp BP BP Pulse Ox 11/07/20 19:37 166/80 H 11/07/20 18:40 97.9 F 83 176/88 H 11/07/20 18:37 80 174/80 H 11/07/20 18:35 80 168/84 H 11/07/20 18:30 79 162/78 H 11/07/20 18:25 78 169/80 H 11/07/20 18:20 79 175/89 H 11/07/20 18:13 174/88 H 11/07/20 18:11 97.9 F 78 18 174/88 H 11/07/20 17:59 98.1 F 77 19 161/91 H 11/07/20 16:42 164/95 H 11/07/20 16:01 97.7 F 81 18 97 11/07/20 16:00 97.7 F 77 18 165/94 H 100 11/07/20 15:45 97.7 F 81 14 171/91 H 11/07/20 15:32 97.7 F 77 18 165/94 H 11/07/20 15:24 97.7 F 78 18 165/94 H 11/07/20 12:07 98.2 F 90 18 184/113 H 99 - Physical Exam General Appearance: positive: No acute distress Respiratory: positive: No respiratory distress Cardiovascular: positive: Other Neurologic/Psychiatric: positive: Oriented x3 Conclusion/Plan - Diagnosis Diagnosis: Severe menorrhagia. Symptomatic anemia - Plan Plan: 50 yo who presented with symptomatic anemia, hypertension , and ongoing menorrhagia Admitted to observation for transfusion -Recommend pelvic us--> EMS 14 mm Medroxyprogesterone 10 mg po x1 daily to reduce bleeding -Ok to increase dosing to 20-30 mg po daily to manage bleeding Recommend hysteroscopy D&C after completion of transfusion -Will likely return with acute blood loss anemia in absence of intervention -NPO at present -If unable to complete transfusion within timely manner, allow patient to eat and then keep NPO for potential add on tomorrow am. Recommend completion of pap smear at time of hysteroscopy D&C High concern for potential malignant process given risk profile and severity of presentation. Thank you for including me in the care of this patient. - Lab Results Fish Bones: 11/07/20 12:40 11/07/20 12:40 - Diagnostic Imaging Results Diagnostic Imaging Results Comments: Pelvic us shows 14 mm EMS
[2020-11-07] MEDS: DEXTROSE 5%-0.9% NACL 1,000 ML IV SCH (21:56)
[2020-11-07 22:43] LABS: HCT - HEMATOCRIT 24.3 % (37.0-47.0); HGB - HEMOGLOBIN 7.6 g/dL (12.0-16.0)
[2020-11-08] MEDS: SODIUM CHLORIDE FLUSH 0.9% 10 ML SYRINGE IVP SCH ×2 (00:05→07:47)
[2020-11-08 05:20] LABS: BASOPHILS # (AUTO) 0.1 10^3/uL (0.0-0.1); BASOPHILS % (AUTO) 1.4 %; EOSINOPHILS # (AUTO) 0.3 10^3/uL (0.0-0.7); EOSINOPHILS % (AUTO) 3.7 %; HCT - HEMATOCRIT 25.3 % (37.0-47.0); HGB - HEMOGLOBIN 7.5 g/dL (12.0-16.0); LYMPHOCYTES # (AUTO) 2.2 10^3/uL (1.5-3.5); LYMPHOCYTES % (AUTO) 30.6 %; MEAN CORPUSCULAR HEMOGLOBIN 25.5 pg (27.0-31.0); MEAN CORPUSCULAR HGB CONC 29.6 g/dL (32.0-36.0); MEAN CORPUSCULAR VOLUME 86.1 fL (81.0-99.0); MONOCYTES # (AUTO) 0.5 10^3/uL (0.0-1.0); MONOCYTES % (AUTO) 6.3 %; NEUTROPHILS # (AUTO) 4.2 10^3/uL (1.5-6.6); NEUTROPHILS % (AUTO) 57.6 %; PLT - PLATELET COUNT 379 10^3/uL (130-450); RED BLOOD COUNT 2.94 10^6/uL (4.20-5.40); RED CELL DISTRIBUTION WIDTH 15.6 % (12.0-15.0); WHITE BLOOD COUNT 7.3 x10^3/uL (4.8-10.8)
[2020-11-08 05:24] LABS: CREATININE 0.8 mg/dL (0.4-1.0); POTASSIUM 4.1 mmol/L (3.5-5.0)
[2020-11-08] MEDS: amLODIPine 5 MG TABLET PO SCH (07:44)
[2020-11-08] MEDS: FERROUS SULFATE 325 MG TABLET PO SCH (07:44)
--- NOTE | 2020-11-08 09:10 | PROVIDER PROGRESS NOTE ---
Subjective - Prog Note Date Prog Note Date: 11/08/20 Prog Note Time: 09:08 - Subjective Subjective: Patient has recevied 2 units of PRBC overnight with appropriate rise in HCT. Also receiving IV iron and B12. Feels better this am. Minimal bleeding on proge sterone. NPO since midnight. Blood pressure under better control this am. Objective - Vital Signs/Intake & Output Reviewed Vital Signs: Yes Vital Signs: Vital Signs x48h Temp Pulse Resp BP Pulse Ox 11/08/20 07:35 98.1 F 84 16 151/78 H 98 11/08/20 05:00 99.1 F 76 16 149/79 H 97 Intake & Output: Intake & Output 11/05/20 11/06/20 11/07/20 11/08/20 23:59 23:59 23:59 23:59 Intake Total 1975 Balance 1974 - Objective General Appearance: positive: No acute distress Respiratory: positive: No respiratory distress Cardiovascular: positive: Other (RR) Skin: positive: Pallor Neurologic/Psychiatric: positive: Oriented x3 - Lab Results Fish Bones: 11/08/20 04:53 11/08/20 04:53 Other Labs: Lab Results x24hrs 11/08/20 11/08/20 11/07/20 Range/Units 04:53 04:53 22:35 WBC 7.3 (4.8-10.8) x10^3/uL RBC 2.94 L (4.20-5.40) 10^6/uL Hgb 7.5 L 7.6 L (12.0-16.0) g/dL Hct 25.3 L 24.3 L (37.0-47.0) % MCV 86.1 (81.0-99.0) fL MCH 25.5 L (27.0-31.0) pg MCHC 29.6 L (32.0-36.0) g/dL RDW 15.6 H (12.0-15.0) % Plt Count 379 (130-450) 10^3/uL MPV 10.0 (7.9-10.8) fL Reticulocyte % (Auto) (0.5-2.3) % Neut # (Auto) 4.2 (1.5-6.6) 10^3/uL Lymph # (Auto) 2.2 (1.5-3.5) 10^3/uL Saline # (Auto) 0.5 (0.0-1.0) 10^3/uL Eos # (Auto) 0.3 (0.0-0.7) 10^3/uL Baso # (Auto) 0.1 (0.0-0.1) 10^3/uL Absolute Nucleated RBC 0.00 x10^3/uL Nucleated RBC % 0.0 /100WBC Absolute Retic (0.020-0.110) 10^6/uL PT (9.9-12.6) secs INR (0.8-1.2) APTT (24.9-33.3) secs Sodium 138 (135-145) mmol/L Potassium 4.1 (3.5-5.0) mmol/L Chloride 108 (101-111) mmol/L Carbon Dioxide 22 (21-32) mmol/L Anion Gap 8.0 (6-13) BUN 16 (6-20) mg/dL Creatinine 0.8 (0.4-1.0) mg/dL Estimated GFR (MDRD) 76 L (>89) Glucose 124 H (70-100) mg/dL Calcium 8.0 L (8.5-10.3) mg/dL Iron (28-170) ug/dL TIBC (250-450) ug/dL % Saturation (20-50) % Transferrin (192-382) mg/dL Ferritin (11.0-306.8) ng/mL Total Bilirubin (0.2-1.0) mg/dL AST (10-42) IU/L ALT (10-60) IU/L Alkaline Phosphatase (42-121) IU/L Lactate Dehydrogenase (91-225) IU/L Total Protein (6.7-8.2) g/dL Albumin (3.2-5.5) g/dL Globulin (2.1-4.2) g/dL Albumin/Globulin Ratio (1.0-2.2) Lipase (22-51) U/L Vitamin B12 (180-914) pg/mL Nasal Adenovirus (PCR) Nasal B. parapertussis DNA (PCR) Nasal Coronavir 229E PCR Nasal Coronavir HKU1 PCR Nasal Coronavir NL63 PCR Nasal Coronavir OC43 PCR Nasal Enterovir/Rhinovir PCR Nasal Influenza B PCR Nasal Influenza A PCR Nasal Parainfluen 1 PCR Nasal Parainfluen 2 PCR Nasal Parainfluen 3 PCR Nasal Parainfluen 4 PCR Nasal RSV (PCR) Nasal B.pertussis DNA PCR Nasal C.pneumoniae (PCR) Marlo Human Metapneumo PCR Nasal M.pneumoniae (PCR) Nasal SARS-CoV-2 (PCR) Blood Type Blood Type Recheck Antibody Screen Crossmatch IS Only 11/07/20 11/07/20 11/07/20 Range/Units 13:00 12:40 12:40 WBC (4.8-10.8) x10^3/uL RBC (4.20-5.40) 10^6/uL Hgb (12.0-16.0) g/dL Hct (37.0-47.0) % MCV (81.0-99.0) fL MCH (27.0-31.0) pg MCHC (32.0-36.0) g/dL RDW (12.0-15.0) % Plt Count (130-450) 10^3/uL MPV (7.9-10.8) fL Reticulocyte % (Auto) (0.5-2.3) % Neut # (Auto) (1.5-6.6) 10^3/uL Lymph # (Auto) (1.5-3.5) 10^3/uL Saline # (Auto) (0.0-1.0) 10^3/uL Eos # (Auto) (0.0-0.7) 10^3/uL Baso # (Auto) (0.0-0.1) 10^3/uL Absolute Nucleated RBC x10^3/uL Nucleated RBC % /100WBC Absolute Retic (0.020-0.110) 10^6/uL PT (9.9-12.6) secs INR (0.8-1.2) APTT (24.9-33.3) secs Sodium (135-145) mmol/L Potassium (3.5-5.0) mmol/L Chloride (101-111) mmol/L Carbon Dioxide (21-32) mmol/L Anion Gap (6-13) BUN (6-20) mg/dL Creatinine (0.4-1.0) mg/dL Estimated GFR (MDRD) (>89) Glucose (70-100) mg/dL Calcium (8.5-10.3) mg/dL Iron (28-170) ug/dL TIBC (250-450) ug/dL % Saturation (20-50) % Transferrin (192-382) mg/dL Ferritin 4.0 L (11.0-306.8) ng/mL Total Bilirubin (0.2-1.0) mg/dL AST (10-42) IU/L ALT (10-60) IU/L Alkaline Phosphatase (42-121) IU/L Lactate Dehydrogenase 216 (91-225) IU/L Total Protein (6.7-8.2) g/dL Albumin (3.2-5.5) g/dL Globulin (2.1-4.2) g/dL Albumin/Globulin Ratio (1.0-2.2) Lipase (22-51) U/L Vitamin B12 178 L (180-914) pg/mL Nasal Adenovirus (PCR) NOT DETECTED Nasal B. parapertussis DNA (PCR) NOT DETECTED Nasal Coronavir 229E PCR NOT DETECTED Nasal Coronavir HKU1 PCR NOT DETECTED Nasal Coronavir NL63 PCR NOT DETECTED Nasal Coronavir OC43 PCR NOT DETECTED Nasal Enterovir/Rhinovir PCR NOT DETECTED Nasal Influenza B PCR NOT DETECTED Nasal Influenza A PCR NOT DETECTED Nasal Parainfluen 1 PCR NOT DETECTED Nasal Parainfluen 2 PCR NOT DETECTED Nasal Parainfluen 3 PCR NOT DETECTED Nasal Parainfluen 4 PCR NOT DETECTED Nasal RSV (PCR) NOT DETECTED Nasal B.pertussis DNA PCR NOT DETECTED Nasal C.pneumoniae (PCR) NOT DETECTED Marlo Human Metapneumo PCR NOT DETECTED Nasal M.pneumoniae (PCR) NOT DETECTED Nasal SARS-CoV-2 (PCR) NOT DETECTED Blood Type Blood Type Recheck Antibody Screen Crossmatch IS Only 11/07/20 11/07/20 11/07/20 Range/Units 12:40 12:40 12:40 WBC (4.8-10.8) x10^3/uL RBC 2.46 L (4.20-5.40) 10^6/uL Hgb (12.0-16.0) g/dL Hct (37.0-47.0) % MCV (81.0-99.0) fL MCH (27.0-31.0) pg MCHC (32.0-36.0) g/dL RDW (12.0-15.0) % Plt Count (130-450) 10^3/uL MPV (7.9-10.8) fL Reticulocyte % (Auto) 2.06 (0.5-2.3) % Neut # (Auto) (1.5-6.6) 10^3/uL Lymph # (Auto) (1.5-3.5) 10^3/uL Saline # (Auto) (0.0-1.0) 10^3/uL Eos # (Auto) (0.0-0.7) 10^3/uL Baso # (Auto) (0.0-0.1) 10^3/uL Absolute Nucleated RBC x10^3/uL Nucleated RBC % /100WBC Absolute Retic 0.051 (0.020-0.110) 10^6/uL PT (9.9-12.6) secs INR (0.8-1.2) APTT (24.9-33.3) secs Sodium (135-145) mmol/L Potassium (3.5-5.0) mmol/L Chloride (101-111) mmol/L Carbon Dioxide (21-32) mmol/L Anion Gap (6-13) BUN (6-20) mg/dL Creatinine (0.4-1.0) mg/dL Estimated GFR (MDRD) (>89) Glucose (70-100) mg/dL Calcium (8.5-10.3) mg/dL Iron 18 L (28-170) ug/dL TIBC 532 H (250-450) ug/dL % Saturation 3 L (20-50) % Transferrin 380 (192-382) mg/dL Ferritin (11.0-306.8) ng/mL Total Bilirubin (0.2-1.0) mg/dL AST (10-42) IU/L ALT (10-60) IU/L Alkaline Phosphatase (42-121) IU/L Lactate Dehydrogenase (91-225) IU/L Total Protein (6.7-8.2) g/dL Albumin (3.2-5.5) g/dL Globulin (2.1-4.2) g/dL Albumin/Globulin Ratio (1.0-2.2) Lipase (22-51) U/L Vitamin B12 (180-914) pg/mL Nasal Adenovirus (PCR) Nasal B. parapertussis DNA (PCR) Nasal Coronavir 229E PCR Nasal Coronavir HKU1 PCR Nasal Coronavir NL63 PCR Nasal Coronavir OC43 PCR Nasal Enterovir/Rhinovir PCR Nasal Influenza B PCR Nasal Influenza A PCR Nasal Parainfluen 1 PCR Nasal Parainfluen 2 PCR Nasal Parainfluen 3 PCR Nasal Parainfluen 4 PCR Nasal RSV (PCR) Nasal B.pertussis DNA PCR Nasal C.pneumoniae (PCR) Marlo Human Metapneumo PCR Nasal M.pneumoniae (PCR) Nasal SARS-CoV-2 (PCR) Blood Type O POSITIVE Blood Type Recheck Antibody Screen NEGATIVE Crossmatch IS Only See Detail 11/07/20 11/07/20 11/07/20 Range/Units 12:40 12:40 12:40 WBC 8.2 (4.8-10.8) x10^3/uL RBC 2.48 L (4.20-5.40) 10^6/uL Hgb 6.1 L* (12.0-16.0) g/dL Hct 20.9 L (37.0-47.0) % MCV 84.3 (81.0-99.0) fL MCH 24.6 L (27.0-31.0) pg MCHC 29.2 L (32.0-36.0) g/dL RDW 15.9 H (12.0-15.0) % Plt Count 421 (130-450) 10^3/uL MPV 10.1 (7.9-10.8) fL Reticulocyte % (Auto) (0.5-2.3) % Neut # (Auto) 5.1 (1.5-6.6) 10^3/uL Lymph # (Auto) 2.2 (1.5-3.5) 10^3/uL Saline # (Auto) 0.5 (0.0-1.0) 10^3/uL Eos # (Auto) 0.2 (0.0-0.7) 10^3/uL Baso # (Auto) 0.1 (0.0-0.1) 10^3/uL Absolute Nucleated RBC 0.00 x10^3/uL Nucleated RBC % 0.0 /100WBC Absolute Retic (0.020-0.110) 10^6/uL PT 12.8 H (9.9-12.6) secs INR 1.2 (0.8-1.2) APTT 29.0 (24.9-33.3) secs Sodium 134 L (135-145) mmol/L Potassium 3.8 (3.5-5.0) mmol/L Chloride 106 (101-111) mmol/L Carbon Dioxide 22 (21-32) mmol/L Anion Gap 6.0 (6-13) BUN 18 (6-20) mg/dL Creatinine 0.7 (0.4-1.0) mg/dL Estimated GFR (MDRD) 89 (>89) Glucose 108 H (70-100) mg/dL Calcium 8.0 L (8.5-10.3) mg/dL Iron (28-170) ug/dL TIBC (250-450) ug/dL % Saturation (20-50) % Transferrin (192-382) mg/dL Ferritin (11.0-306.8) ng/mL Total Bilirubin 0.4 (0.2-1.0) mg/dL AST 19 (10-42) IU/L ALT 17 (10-60) IU/L Alkaline Phosphatase 56 (42-121) IU/L Lactate Dehydrogenase (91-225) IU/L Total Protein 7.0 (6.7-8.2) g/dL Albumin 3.6 (3.2-5.5) g/dL Globulin 3.4 (2.1-4.2) g/dL Albumin/Globulin Ratio 1.1 (1.0-2.2) Lipase 26 (22-51) U/L Vitamin B12 (180-914) pg/mL Nasal Adenovirus (PCR) Nasal B. parapertussis DNA (PCR) Nasal Coronavir 229E PCR Nasal Coronavir HKU1 PCR Nasal Coronavir NL63 PCR Nasal Coronavir OC43 PCR Nasal Enterovir/Rhinovir PCR Nasal Influenza B PCR Nasal Influenza A PCR Nasal Parainfluen 1 PCR Nasal Parainfluen 2 PCR Nasal Parainfluen 3 PCR Nasal Parainfluen 4 PCR Nasal RSV (PCR) Nasal B.pertussis DNA PCR Nasal C.pneumoniae (PCR) Marlo Human Metapneumo PCR Nasal M.pneumoniae (PCR) Nasal SARS-CoV-2 (PCR) Blood Type Blood Type Recheck Antibody Screen Crossmatch IS Only 11/07/20 Range/Units 09:43 WBC (4.8-10.8) x10^3/uL RBC (4.20-5.40) 10^6/uL Hgb (12.0-16.0) g/dL Hct (37.0-47.0) % MCV (81.0-99.0) fL MCH (27.0-31.0) pg MCHC (32.0-36.0) g/dL RDW (12.0-15.0) % Plt Count (130-450) 10^3/uL MPV (7.9-10.8) fL Reticulocyte % (Auto) (0.5-2.3) % Neut # (Auto) (1.5-6.6) 10^3/uL Lymph # (Auto) (1.5-3.5) 10^3/uL Saline # (Auto) (0.0-1.0) 10^3/uL Eos # (Auto) (0.0-0.7) 10^3/uL Baso # (Auto) (0.0-0.1) 10^3/uL Absolute Nucleated RBC x10^3/uL Nucleated RBC % /100WBC Absolute Retic (0.020-0.110) 10^6/uL PT (9.9-12.6) secs INR (0.8-1.2) APTT (24.9-33.3) secs Sodium (135-145) mmol/L Potassium (3.5-5.0) mmol/L Chloride (101-111) mmol/L Carbon Dioxide (21-32) mmol/L Anion Gap (6-13) BUN (6-20) mg/dL Creatinine (0.4-1.0) mg/dL Estimated GFR (MDRD) (>89) Glucose (70-100) mg/dL Calcium (8.5-10.3) mg/dL Iron (28-170) ug/dL TIBC (250-450) ug/dL % Saturation (20-50) % Transferrin (192-382) mg/dL Ferritin (11.0-306.8) ng/mL Total Bilirubin (0.2-1.0) mg/dL AST (10-42) IU/L ALT (10-60) IU/L Alkaline Phosphatase (42-121) IU/L Lactate Dehydrogenase (91-225) IU/L Total Protein (6.7-8.2) g/dL Albumin (3.2-5.5) g/dL Globulin (2.1-4.2) g/dL Albumin/Globulin Ratio (1.0-2.2) Lipase (22-51) U/L Vitamin B12 (180-914) pg/mL Nasal Adenovirus (PCR) Nasal B. parapertussis DNA (PCR) Nasal Coronavir 229E PCR Nasal Coronavir HKU1 PCR Nasal Coronavir NL63 PCR Nasal Coronavir OC43 PCR Nasal Enterovir/Rhinovir PCR Nasal Influenza B PCR Nasal Influenza A PCR Nasal Parainfluen 1 PCR Nasal Parainfluen 2 PCR Nasal Parainfluen 3 PCR Nasal Parainfluen 4 PCR Nasal RSV (PCR) Nasal B.pertussis DNA PCR Nasal C.pneumoniae (PCR) Marlo Human Metapneumo PCR Nasal M.pneumoniae (PCR) Nasal SARS-CoV-2 (PCR) Blood Type Blood Type Recheck O POSITIVE Antibody Screen Crossmatch IS Only Sepsis Event Note (H) - Evaluation Current Stage of Sepsis: Ruled out Assessment/Plan - Problem List (1) Pre-op evaluation Impression: Reviewed risks/benefits/alternatives to hysteroscopy/polpectomy Risks include, but are not limited to, bleeding, infection, damage to neatby tissue and organs. On average, expected EBL is minimal. In the event of an unanticipated blood loss, patient is willing to undergo transfusion. Risks of blood transfusion include infection as well as transfusion reaction Risk of HIV 1/2million nationwide Risk of Hepatitis 1/1 million Risks of transfusion reaction and mgt reviewed Infection risk low given that no incisions vira be made and we will be using physiologic orifices. Will provide IV abx in the event of uterine perforation. Damage to nearby tissue and organs was reviewed with emphasis on uterine perforation and management, which can include surgical intervention based on bleeding risk. Reviewed management of complications and efforts to avoid such outcomes but reviewed that they may occur despite our best efforts. Patient agreed to the aforementioned procedure and written informed consent was obtained. Proceed to OR for hysteroscopy D&C, possible polypectomy, and pap smear.
[2020-11-08] MEDS ORDERED: SUCCINYLCHOLINE 200 MG/10 ML VIAL ONE (09:13)
[2020-11-08] MEDS ORDERED: MIDAZOLAM 2 MG/2 ML VIAL ONE (09:14)
[2020-11-08] MEDS ORDERED: fentaNYL 100 MCG/2 ML VIAL ONE (09:14)
[2020-11-08] MEDS ORDERED: LIDOCAINE-MPF 2% 5 ML VIAL ONE (09:14)
[2020-11-08] MEDS ORDERED: PROPOFOL 200 MG/20 ML VIAL IVP ONE (09:14)
[2020-11-08] MEDS ORDERED: BUPIVACAINE 0.5%-EPI 1:200000 PF 30 ML VIAL ONE (09:20)
--- NOTE | 2020-11-08 09:20 | ANESTHESIA ---
Pre-Anesthesia VS, & Labs - Diagnosis Diagnosis Severe menorrhagia Symptomatic anemia - Procedure Hysteroscopy, D&C Vital Signs: Temp Pulse Resp BP Pulse Ox 36.7 C 84 16 151/78 H 98 11/08/20 07:35 11/08/20 07:35 11/08/20 07:35 11/08/20 07:35 11/08/20 07:35 Height: 5 ft 4 in Weight (kg): 130 kg Body Mass Index: 49.1 BMI Classification: Morbidly Obese - NPO >8 hours - Is Patient ?: No - Lab Results Current Lab Results: Laboratory Tests 11/08/20 04:53: Sodium 138, Potassium 4.1, Chloride 108, Carbon Dioxide 22, Anion Gap 8.0, BUN 16, Creatinine 0.8, Estimated GFR (MDRD) 76 L, Glucose 124 H, Calcium 8.0 L 11/08/20 04:53: WBC 7.3, RBC 2.94 L, Hgb 7.5 L, Hct 25.3 L, MCV 86.1, MCH 25.5 L , MCHC 29.6 L, RDW 15.6 H, Plt Count 379, MPV 10.0, Neut # (Auto) 4.2, Lymph # (Auto) 2.2, [place] # (Auto) 0.5, Eos # (Auto) 0.3, Baso # (Auto) 0.1, Absolute Nucleated RBC 0.00, Nucleated RBC % 0.0 11/07/20 22:35: Hgb 7.6 L, Hct 24.3 L 11/07/20 12:40: Lactate Dehydrogenase 216 11/07/20 12:40: Ferritin 4.0 L, Vitamin B12 178 L 11/07/20 12:40: Iron 18 L, TIBC 532 H, % Saturation 3 L, Transferrin 380 11/07/20 12:40: RBC 2.46 L, Reticulocyte % (Auto) 2.06, Absolute Retic 0.051 11/07/20 12:40: Blood Type O POSITIVE, Antibody Screen NEGATIVE, Crossmatch IS Only See Detail 11/07/20 12:40: PT 12.8 H, INR 1.2, APTT 29.0 11/07/20 12:40: Sodium 134 L, Potassium 3.8, Chloride 106, Carbon Dioxide 22, Anion Gap 6.0, BUN 18, Creatinine 0.7, Estimated GFR (MDRD) 89, Glucose 108 H, Calcium 8.0 L, Total Bilirubin 0.4, AST 19, ALT 17, Alkaline Phosphatase 56, Total Protein 7.0, Albumin 3.6, Globulin 3.4, Albumin/Globulin Ratio 1.1, Lipase 26 11/07/20 12:40: WBC 8.2, RBC 2.48 L, Hgb 6.1 L*, Hct 20.9 L, MCV 84.3, MCH 24.6 L, MCHC 29.2 L, RDW 15.9 H, Plt Count 421, MPV 10.1, Neut # (Auto) 5.1, Lymph # (Auto) 2.2, [place] # (Auto) 0.5, Eos # (Auto) 0.2, Baso # (Auto) 0.1, Absolute Nucleated RBC 0.00, Nucleated RBC % 0.0 11/07/20 09:43: Blood Type Recheck O POSITIVE Lab results reviewed: Yes Fish Bones: 11/08/20 04:53 11/08/20 04:53 Home Medications and Allergies Home Medications: Ambulatory Orders Metoprolol Succinate [Toprol Xl] 25 mg PO DAILY 11/07/20 Active Medications Acetaminophen (Acetaminophen 325 Mg Tablet) 650 mg PO Q4HR PRN PRN Reason: Pain 1 to 4 Last Admin: 11/07/20 15:30 Dose: 650 mg Documented by: Amlodipine Besylate (Amlodipine 5 Mg Tablet) 5 mg PO DAILY [facility] Last Admin: 11/08/20 07:44 Dose: 5 mg Documented by: Ferrous Sulfate (Ferrous Sulfate 325 Mg Tablet) 325 mg PO BIDWM [facility] Last Admin: 11/08/20 07:44 Dose: 325 mg Documented by: Hydralazine HCl (Hydralazine Inj 20 Mg/Ml Vial) 10 mg IVP QID PRN PRN Reason: Hypertensive Emergency Last Admin: 11/07/20 18:13 Dose: 10 mg Documented by: Dextrose/Sodium Chloride (D5ns) 1,000 mls @ 83.333 mls/hr IV .Q12H [facility] Last Admin: 11/07/20 21:56 Dose: 83.333 mls/hr Documented by: Ibuprofen (Ibuprofen 600 Mg Tablet) 600 mg PO Q6HR PRN PRN Reason: Pain 1 to 4 Last Admin: 11/07/20 19:36 Dose: 600 mg Documented by: Metoprolol Succinate (Metoprolol Succinate 25 Mg Tablet) 25 mg PO DAILY [facility] Last Admin: 11/08/20 07:44 Dose: 25 mg Documented by: Ondansetron HCl (Ondansetron 4 Mg/2 Ml Vial) 4 mg IVP Q6HR PRN PRN Reason: Nausea / Vomiting Sodium Chloride (Sodium Chloride Flush 0.9% 10 Ml Syringe) 10 ml IVP PRN PRN PRN Reason: NEEDED PER PROVIDER ORDERS Sodium Chloride (Sodium Chloride Flush 0.9% 10 Ml Syringe) 10 ml IVP 0100,09 00,1700 [facility] Last Admin: 11/08/20 07:47 Dose: Not Given Documented by: Metoprolol Succinate [Toprol Xl] 25 mg PO DAILY 11/07/20 Allergies/Adverse Reactions: Allergies Allergy/AdvReac Type Severity Reaction Status Date / Time No Known Drug Allergies Allergy Verified 11/07/20 12:16 Anes History & Medical History - Anesthetic History Anesthesia Complications: reports: No previous complications Family history of Anesthesia Complications: Denies Family history of Malignant Hyperthermia: Denies - Medical History Cardiovascular: reports: None Pulmonary: reports: None, Sleep apnea Neuro: reports: None Endocrine/Autoimmune: reports: None Smoking Status: Former smoker Exam General: Alert, Oriented x3, Cooperative, No acute distress Dental: WNL Mouth Openin Fingerbreadth Neck Mobility: Normal Mallampati classification: II Respiratory: Lungs clear, Normal breath sounds, No respiratory distress, No accessory muscle use Cardiovascular: Regular rate, Normal S1, Normal S2, No murmurs Plan Anesthesia Type: General Consent for Procedure(s) Verified and Reviewed: Yes Code Status: Attempt Resuscitation ASA classification: 3-Severe systemic disease Is this case an emergency?: No
[2020-11-08] MEDS ORDERED: SCOPOLAMINE PATCH TOP ONE (09:24)
[2020-11-08] MEDS ORDERED: fentaNYL 100 MCG/2 ML VIAL IVP PRN (09:51)
[2020-11-08] MEDS ORDERED: ePHEDrine 50 MG/ML VIAL IVP PRN (09:51)
[2020-11-08] MEDS ORDERED: METOCLOPRAMIDE 10 MG/2 ML VIAL IVP PRN (09:51)
[2020-11-08] MEDS ORDERED: ATROPINE ABBOJECT 1 MG/10 ML SYRINGE IVP PRN (09:51)
[2020-11-08] MEDS ORDERED: NALOXONE 0.4 MG/ML VIAL IVP PRN (09:51)
[2020-11-08] MEDS ORDERED: MORPHINE 2 MG/ML CARPUJECT IVP PRN (09:51)
[2020-11-08] MEDS ORDERED: ONDANSETRON 4 MG/2 ML VIAL IVP PRN (09:51)
[2020-11-08] MEDS ORDERED: ONDANSETRON 4 MG/2 ML VIAL ONE ×2 (09:57→10:52)
[2020-11-08] MEDS ORDERED: DEXAMETHASONE 4 MG/ML VIAL ONE (09:57)
[2020-11-08] MEDS ORDERED: LACTATED RINGERS 1,000 ML IV SCH (10:00)
[2020-11-08] MEDS ORDERED: ePHEDrine 50 MG/ML VIAL IVP ONE (10:02)
[2020-11-08] MEDS ORDERED: BUPIVACAINE 0.5%-EPI 1:200000 PF 30 ML VIAL SUBQ ONE (10:30)
[2020-11-08] MEDS ORDERED: LACTATED RINGERS 1,000 ML IV ONE (10:34)
[2020-11-08] MEDS ORDERED: HYDROmorphone 1 MG/ML CARPUJECT ONE (10:57)
[2020-11-08] MEDS: HYDROmorphone 0.5 MG/0.5 ML SYRINGE IVP PRN ×2 (10:58→11:20)
--- NOTE | 2020-11-08 11:04 | OPERATIVE REPORT ---
Operative Report - General Admit Date: 11/07/20 Planned Procedure: Hysteroscopy D&C Pap smear Pre-Op Diagnosis: DUB, acute blood loss anemia Procedure Performed: Hysteroscopy D&C Pap smear Post Op Diagnosis: Same and Stage III uterine prolapse - Procedure Note Primary Surgeon: Shannon Miller MD Anesthesia Provider: Priti Hednricks CRNA Anesthesia Technique: General ET tube Pathology: 1) Endocervical curettage 2) Uterine contents Pap smear to be sent from clinic IV Fluids (mL): 800 Estimated Blood Loss (mL): 5 Urine Output (mL): 25 (In and out catheterization) Indications: Patient is a 50 yo who presented from the walk in clinic with severe anemia secondary to ongoing DUB. Patient reports that she continues to have monthly menses but cycles have become irregular and heavy. Has been soaking a pad an hour for several days. Has gone through three pads this am. Also has severe lower back pain prior to onset of mesnes. She is actively bleeding at present. Has been bleeding for 2 days. Had no bleeding two days prior to that. Had been bleeding daily for an unclear period of time prior to the 2 day break. Presented to [facility] with severe fatigue and found to have a HCT of 20. Seen [facility] yesterday for SOB, fatigue, and malaise. Was diagnosed with HTN and started on antihypertensives yesterday. Unsure of name, thinks of was metoprolol. Had EKG and CXR. Denies any other significant PMH. Has been avoiding medical care. Thinks her last pap smear was 20 years ago. Had an abnormal pap smear with normal follow-up. Reports she had a pelvic us about 2 years ago but nothing was done about presumably normal findings, per her report. No STIs. Transfused 2 units overnight. Blood pressures better controlled. Received iron infusion and B12 injection. Findings: Stage III uterine prolapse and mild rectal prolapse. Uterine cavity with thickened lining. No structural abnormalities. Bilateral tubal ostia visualized. Complications: None - Other Other Information/Narrative: Risks benefits and alternatives to the procedure were reviewed. Consent was again confirmed. Patient was taken to the operating room where she underwent general anesthesia. She was positioned in dorsolithotomy position with legs resting in yellowfin stirrups. She was prepped and draped in the usual sterile fashion. Preoperative antibiotics were not indicated. Preoperative checklist was performed. Exam under anesthesia was performed. Speculum was placed in the vagina and the cervix was visualized. Single-tooth tenaculum was placed at the anterior cervical lip. Paracervical block was administered using a total of 30 cc of 0.5% bupivicaine with epinephrine was injected at the 4:00 and 8:00 positions lateral to the portio of the cervix. Endocervical curettage was collected. The cervical os was already adequately dilated o accommodate the caliber of the diagnostic hysteroscope. The hysteroscope was inserted and findings were noted as above. Hysteroscope was removed. Sharp curettage D&C was performed with sharp curettage. Hysteroscope was reinserted and one corner of the uterine cavity was not fully curetted. Hysteroscope was again removed. Sharp curettage D&C was again performed with sharp curettage. Hysteroscope was reinserted and the uterine cavity was fully sampled. Uterine cavity was smooth at close of the procedure. Hysteroscope was removed. Pap smear was collected. All instruments were removed from the uterus. Tenaculum was removed. Tenaculum sites were noted to be hemostatic. All instruments were removed from the vagina. Procedure was well-tolerated without complication. Fluid deficit: 330 cc NS
[2020-11-08] MEDS ORDERED: LORazepam 2 MG/ML VIAL IVP SCH (12:00)
--- NOTE | 2020-11-08 12:10 | ANESTHESIA POST OP EVALUATION ---
Anesthesia Post Eval - Post Anesthesia Eval Vitals: Last Vital Signs Temp 36.4 C L 11/08/20 11:35 Pulse 77 11/08/20 11:50 Resp 23 11/08/20 11:50 BP 148/77 H 11/08/20 11:50 Pulse Ox 96 11/08/20 11:50 CV Function Including HR & BP: Stable Pain Control: Satisfactory Nausea & Vomiting: Negative Mental Status: Baseline Respiratory Status: Airway Patent Hydration Status: Satisfactory Anesthesia Complications: None
[2020-11-08] MEDS: DEXTROSE 5%-0.9% NACL 1,000 ML IV SCH (13:12)
[2020-11-08 14:19] LABS: HGB - HEMOGLOBIN 7.9 g/dL (12.0-16.0)
[2020-11-08 15:56] VITALS: BP 139/73
--- NOTE | 2020-11-08 16:20 | DISCHARGE SUMMARY ---
Discharge Summary Admit Date: 11/07/20 Discharge Date: 11/08/20 Discharging Provider: Arnaldo Trejo Primary Care Provider: Dr. Ratliff Condition at Discharge: Stable Discharge Facility Name: home - DIAGNOSES Discharge Diagnoses with Status of Each Condition: (1) Symptomatic anemia Significantly improved. pt walked with nurse Jaja without any dizziness. pt has 99% sat on room. pt had urination before pt is d/c. pt's HGB is stable and increased. pt had two unit of blood transfusion. pt's HGB is 7.9 from 6.1 at the admission. pt is prescribed iron pill for iron deficiency, and pt was given IM B12 at hospital as well. pt report she has no more vaginal bleeding. Pt report she will see her PCP Dr. Ratliff on next week, and advise pt has HBG check with her PCP. pt state she understood and will check HGB on next week. pt was d/c by [employer] [employer]. (2) Menorrhagia pt report she has no more vaginal bleeding. pt's HGB is stable and increased. pt was consulted with [employer]. pt had Hysteroscopy D&C and Pap smear procedure done in the hospital. pt is prescribed medications by [employer]. pt was instructed to followup with [employer] in four weeks. (3) HTN (hypertension) stable, resume home meds. - HPI History of Present Illness: This is a 50-year-old female with past medical history of high blood pressure, Covid positive on last year, Menorrhagia. pt was sent by walk-in Clinic for her low HGB. pt report she usually had heavy menstrual bleeding and needed 12 pads a day. pt report she is in the going through menopause but in the recently two months she continue to have on and off menstrual bleeding and not stopped and she felt very tired as well. Yesterday she went to walk-in Clinic to check it out, and had blood test. pt was informed to go to ER for her abnormal lab value. pt was found to have HGB 6.1. pt denies chest pain, headache, fever, chill, abdominal pain, nausea, vomiting or diarrhea. Discussed the care goal with the patient, patient requests full code - HOSPITAL COURSE Hospital Course: Patient was admitted for symptomatic anemia. Patient was found to have hemoglobin 6.1 and acute blood loss from Menorrhagia. Patient was consulted with [employer]. Patient had the procedure of Hysteroscopy D&C and Pap smear procedure done in the hospital. after treatment, pt's HGB is stable and increased. pt r eport she has no more vaginal bleeding. Patient was discharged as hemodynamic stable condition. - ALLERGIES Allergies/Adverse Reactions: Allergies Allergy/AdvReac Type Severity Reaction Status Date / Time No Known Drug Allergies Allergy Verified 11/07/20 12:16 - MEDICATIONS Home Medications: Ambulatory Orders Medication Instructions Recorded Confirmed Metoprolol Succinate [Toprol Xl] 25 mg PO DAILY 11/07/20 11/07/20 Acetaminophen [Acetaminophen Extra 1,000 mg PO Q8H PRN #60 tablet 11/08/20 Strength] Acetaminophen [Acetaminophen Extra 1,000 mg PO Q8H PRN #60 tablet 11/08/20 Strength] Acetaminophen [Acetaminophen Extra 1,000 mg PO Q8H PRN #60 tablet 11/08/20 Strength] Docusate Sodium 100Mg Capsule 100 - 200 mg PO BID PRN #60 cap 11/08/20 [Colace 100Mg Capsule] Docusate Sodium 100Mg Capsule 100 - 200 mg PO BID PRN #60 cap 11/08/20 [Colace 100Mg Capsule] Docusate Sodium 100Mg Capsule 100 - 200 mg PO BID PRN #60 cap 11/08/20 [Colace 100Mg Capsule] Ferrous Sulfate 325 mg PO DAILY #30 tab 11/08/20 Ibuprofen [Motrin] 600 mg PO Q6H PRN #60 tab 11/08/20 Ibuprofen [Motrin] 600 mg PO Q6H PRN #60 tab 11/08/20 Ibuprofen [Motrin] 600 mg PO Q6H PRN #60 tab 11/08/20 Medroxyprogesterone Acetate 10 mg PO DAILY #60 tablet 11/08/20 [Provera] oxyCODONE [Roxicodone] 2.5 - 5 mg PO Q4H PRN #10 tablet 11/08/20 oxyCODONE [Roxicodone] 2.5 - 5 mg PO Q4H PRN #10 tablet 11/08/20 oxyCODONE [Roxicodone] 2.5 - 5 mg PO Q4H PRN #24 tablet 11/08/20 - PHYSICAL EXAM AT DISCHARGE General Appearance: positive: No acute distress, Alert. negative: Lethargic Eyes Bilateral: positive: Normal inspection, PERRL, No lid inflammation ENT: positive: ENT inspection nml, No signs of dehydration. negative: Purulent nasal drainage Neck: positive: Nml inspection, Trachea midline. negative: Thyromegaly, Tracheal deviation Respiratory: positive: Chest non-tender, No respiratory distress, Breath sounds nml. negative: Wheezes, Rales Cardiovascular: positive: Regular rate & rhythm, No murmur. negative: Tachycardia, PMI displaced laterally, Systolic murmur, Diastolic murmur Peripheral Pulses: positive: 2+ Abdomen: positive: Non-tender, Nml bowel sounds, No distention. negative: Tenderness Back: positive: Nml inspection Skin: positive: Color nml, Warm, Dry. negative: Cyanosis, Diaphoresis, Pallor Extremities: positive: Non-tender, Full ROM, Nml appearance. negative: Calf tenderness Neurologic/Psychiatric: positive: Oriented x3, Motor nml, Sensation nml, Mood/affect nml. negative: Weakness, Sensory loss, Facial droop, Slurred/abnml speech, Depressed mood/affect - LABS Result Diagrams: 11/08/20 14:14 11/08/20 04:53 - SEPSIS Current Stage of Sepsis: Ruled out - FOLLOW UP Follow Up: pt is advised to followup with her PCP in one week and recheck her HGB, and followup with [employer] in four weeks. Should her symptoms return or worsen, she may return to ER or call 911 for help. - TIME SPENT Time Spent in Discharge (Minutes): 30
== END 2020-11-08 16:12 | disposition home or self-care (01) ==
LOC: ED 12:02 → MS2 12:51
PROVIDERS: ADMIT Internal Medicine; ATTEND Obstetrics & Gynecology
PROC: 0UDB7ZZ Extraction of Endometrium, Via Natural or Artificial Opening (ICD-10-PCS; principal; 2020-11-08 09:15)
PROC: 0UJD8ZZ Inspection of Uterus and Cervix, Via Natural or Artificial Opening Endoscopic (ICD-10-PCS; 2020-11-08 09:15)
DX: D62 Acute posthemorrhagic anemia (principal); E61.1 Iron deficiency; N92.0 Excessive and frequent menstruation with regular cycle; Z86.16 Personal history of COVID-19; N93.8 Other specified abnormal uterine and vaginal bleeding; N81.3 Complete uterovaginal prolapse; E66.01 Morbid (severe) obesity due to excess calories; Z68.42 Body mass index [BMI] 45.0-49.9, adult; G47.30 Sleep apnea, unspecified; I11.9 Hypertensive heart disease without heart failure; R00.0 Tachycardia, unspecified; R06.02 Shortness of breath; F41.9 Anxiety disorder, unspecified; Z20.822 Contact with and (suspected) exposure to COVID-19; Z79.899 Other long term (current) drug therapy
CPT/HCPCS: 0202U; 36415; 36430; 58558; 76830; 76856; 80048; 80053; 80061; 82607; 82728; 83540; 83615; 83690; 84443; 84466; 85014; 85018; 85025; 85045; 85610; 85730; 86850; 86900; 86901; 86920; 93005; 96372; 96374; 99284; 99285; A9270; J0330; J1170; J3490; J7120; P9040; 83721

== ENCOUNTER 2020-11-11 15:37 | Outpatient (CLI) | payer OTHER ==
[2020-11-11 15:58] LABS: BASOPHILS # (AUTO) 0.1 10^3/uL (0.0-0.1); BASOPHILS % (AUTO) 1.1 %; EOSINOPHILS # (AUTO) 0.2 10^3/uL (0.0-0.7); EOSINOPHILS % (AUTO) 2.4 %; HCT - HEMATOCRIT 30.5 % (37.0-47.0); HGB - HEMOGLOBIN 9.1 g/dL (12.0-16.0); LYMPHOCYTES % (AUTO) 33.6 %; MEAN CORPUSCULAR HEMOGLOBIN 25.9 pg (27.0-31.0); MEAN CORPUSCULAR HGB CONC 29.8 g/dL (32.0-36.0); MEAN CORPUSCULAR VOLUME 86.9 fL (81.0-99.0); MEAN PLATELET VOLUME 9.2 fL (7.9-10.8); MONOCYTES # (AUTO) 0.4 10^3/uL (0.0-1.0); MONOCYTES % (AUTO) 4.8 %; NEUTROPHILS # (AUTO) 5.1 10^3/uL (1.5-6.6); NEUTROPHILS % (AUTO) 57.3 %; PLT - PLATELET COUNT 431 10^3/uL (130-450); RED BLOOD COUNT 3.51 10^6/uL (4.20-5.40); RED CELL DISTRIBUTION WIDTH 17.4 % (12.0-15.0); WHITE BLOOD COUNT 8.9 x10^3/uL (4.8-10.8)
== END 2020-11-11 15:38 | disposition home or self-care (01) ==
LOC: LAB 15:37
PROVIDERS: ATTEND Registered Nurse
DX: N92.1 Excessive and frequent menstruation with irregular cycle (principal)
CPT/HCPCS: 36415; 85025

== ENCOUNTER 2020-11-14 11:06 | Outpatient (CLI) | payer OTHER ==
[2020-11-14 11:26] LABS: HCT - HEMATOCRIT 32.2 % (37.0-47.0); HGB - HEMOGLOBIN 9.8 g/dL (12.0-16.0); MEAN CORPUSCULAR HEMOGLOBIN 26.8 pg (27.0-31.0); MEAN CORPUSCULAR HGB CONC 30.4 g/dL (32.0-36.0); MEAN CORPUSCULAR VOLUME 88.2 fL (81.0-99.0); MEAN PLATELET VOLUME 9.7 fL (7.9-10.8); RED BLOOD COUNT 3.65 10^6/uL (4.20-5.40); RED CELL DISTRIBUTION WIDTH 18.3 % (12.0-15.0); WHITE BLOOD COUNT 6.1 x10^3/uL (4.8-10.8)
[2020-11-14 11:50] LABS: ALBUMIN 4.1 g/dL (3.2-5.5); ALBUMIN/GLOBULIN RATIO 1.2 (1.0-2.2); BILIRUBIN,TOTAL 0.4 mg/dL (0.2-1.0); CALCIUM 9.7 mg/dL (8.5-10.3); CREATININE 0.9 mg/dL (0.4-1.0); POTASSIUM 4.1 mmol/L (3.5-5.0); TOTAL PROTEIN 7.4 g/dL (6.7-8.2)
[2020-11-14 11:56] LABS: THYROID STIMULATING HORMONE 1.26 uIU/mL (0.34-5.60)
[2020-11-14 12:03] LABS: FERRITIN 21.4 ng/mL (11.0-306.8)
[2020-11-14 12:33] LABS: ESTIMATED AVERAGE GLUCOSE 111 mg/dL (70-100); HEMOGLOBIN A1c% 5.5 % (4.27-6.07)
== END 2020-11-14 11:07 | disposition home or self-care (01) ==
LOC: LAB 11:06
PROVIDERS: ATTEND Obstetrics & Gynecology
DX: Z13.1 Encounter for screening for diabetes mellitus (principal); D50.0 Iron deficiency anemia secondary to blood loss (chronic); N92.0 Excessive and frequent menstruation with regular cycle
CPT/HCPCS: 36415; 80053; 82306; 82607; 82728; 83036; 83540; 84443; 84466; 85027

== ENCOUNTER 2021-01-28 08:46 | Outpatient (CLI) | payer OTHER | END 2021-01-28 08:47 | disposition home or self-care (01) | LOC: DI 08:46 | PROVIDERS: ATTEND Obstetrics & Gynecology | DX: I11.9 Hypertensive heart disease without heart failure (principal); I49.3 Ventricular premature depolarization | CPT/HCPCS: 93306 ==

== ENCOUNTER 2021-01-31 09:24 | Outpatient (CLI) | payer OTHER ==
--- NOTE | 2021-02-03 15:41 | Mammography Report ---
BILATERAL DIGITAL SCREENING MAMMOGRAM 3D/2D: 01/31/2021 CLINICAL: Routine screening. Baseline exam. No prior exams were available for comparison. The tissue of both breasts is predominantly fatty. No significant masses, calcifications, or other findings are seen in either breast. IMPRESSION: NEGATIVE There is no mammographic evidence of malignancy. A 1 year screening mammogram is recommended. This exam was interpreted at Station ID: [id number]. NOTE: For mammograms, a report in lay terms will be sent to the patient. Approximately 15% of breast malignancies will not be visualized mammographically. In the management of a palpable breast mass, a negative mammogram must not discourage biopsy of a clinically suspicious lesion. Electronically Signed By: Pedro Luis [email or web address]:01/31/2021 12:56:00 ACR BI-RADS Category 1: Negative 3341F PARENCHYMAL PATTERN: (F) - The breast(s) demonstrate(s) diffuse fatty replacement. BI-RADS CATEGORY: (1) - 1 RECOMMENDATION: (ANNUAL) - Recommend routine annual screening mammography. [id number] 1 year screening LATERALITY: (B)
== END 2021-01-31 09:25 | disposition home or self-care (01) ==
LOC: DI 09:24
PROVIDERS: ATTEND Obstetrics & Gynecology
DX: Z12.31 Encounter for screening mammogram for malignant neoplasm of breast (principal)

== ENCOUNTER 2021-05-10 07:55 | Outpatient (CLI) | payer OTHER ==
[2021-05-10 08:12] LABS: BASOPHILS # (AUTO) 0.1 10^3/uL (0.0-0.1); BASOPHILS % (AUTO) 1.3 %; EOSINOPHILS # (AUTO) 0.3 10^3/uL (0.0-0.7); EOSINOPHILS % (AUTO) 4.6 %; HCT - HEMATOCRIT 36.9 % (37.0-47.0); LYMPHOCYTES # (AUTO) 2.4 10^3/uL (1.5-3.5); LYMPHOCYTES % (AUTO) 36.1 %; MEAN CORPUSCULAR HEMOGLOBIN 29.9 pg (27.0-31.0); MEAN CORPUSCULAR HGB CONC 32.5 g/dL (32.0-36.0); MEAN PLATELET VOLUME 9.9 fL (7.9-10.8); MONOCYTES # (AUTO) 0.3 10^3/uL (0.0-1.0); NEUTROPHILS # (AUTO) 3.6 10^3/uL (1.5-6.6); NEUTROPHILS % (AUTO) 52.9 %; PLT - PLATELET COUNT 291 10^3/uL (130-450); RED BLOOD COUNT 4.01 10^6/uL (4.20-5.40); RED CELL DISTRIBUTION WIDTH 13.2 % (12.0-15.0); WHITE BLOOD COUNT 6.7 x10^3/uL (4.8-10.8)
[2021-05-10 08:25] LABS: BUN - BLOOD UREA NITROGEN 22 mg/dL (6-20); CALCIUM 9.1 mg/dL (8.5-10.3); CARBON DIOXIDE - CO2 26 mmol/L (21-32); CHLORIDE 104 mmol/L (101-111); CHOL/HDL RATIO 3.3 (<4.4); CHOLESTEROL 144 mg/dL; CREATININE 0.8 mg/dL (0.4-1.0); GFR - MDRD 76 (>89); GLUCOSE 124 mg/dL (70-100); HDL CHOLESTEROL 44 mg/dL; LDL CHOLESTEROL,CALCULATED 75 mg/dL; LDL/HDL RATIO 1.7 (<4.4); POTASSIUM 4.1 mmol/L (3.5-5.0); SODIUM 139 mmol/L (135-145); TRIGLYCERIDES 123 mg/dL; VLDL CHOLESTEROL 25 mg/dL
[2021-05-10 08:37] LABS: THYROID STIMULATING HORMONE 3.86 uIU/mL (0.34-5.60)
== END 2021-05-10 07:56 | disposition home or self-care (01) ==
LOC: LAB 07:55
PROVIDERS: ATTEND Registered Nurse
DX: D50.0 Iron deficiency anemia secondary to blood loss (chronic) (principal); R94.31 Abnormal electrocardiogram [ECG] [EKG]; I11.9 Hypertensive heart disease without heart failure
CPT/HCPCS: 36415; 80048; 80061; 83721; 84443; 85025

== ENCOUNTER 2022-05-27 08:19 | Outpatient (CLI) | payer OTHER ==
[2022-05-27 08:38] LABS: BASOPHILS # (AUTO) 0.1 10^3/uL (0.0-0.1); BASOPHILS % (AUTO) 0.9 %; EOSINOPHILS # (AUTO) 0.2 10^3/uL (0.0-0.7); EOSINOPHILS % (AUTO) 2.6 %; LYMPHOCYTES # (AUTO) 2.6 10^3/uL (1.5-3.5); LYMPHOCYTES % (AUTO) 32.5 %; MEAN CORPUSCULAR HEMOGLOBIN 28.4 pg (27.0-31.0); MEAN CORPUSCULAR HGB CONC 30.8 g/dL (32.0-36.0); MEAN CORPUSCULAR VOLUME 92.4 fL (81.0-99.0); MEAN PLATELET VOLUME 9.9 fL (7.9-10.8); MONOCYTES # (AUTO) 0.5 10^3/uL (0.0-1.0); MONOCYTES % (AUTO) 5.9 %; NEUTROPHILS # (AUTO) 4.6 10^3/uL (1.5-6.6); NEUTROPHILS % (AUTO) 57.8 %; PLT - PLATELET COUNT 330 10^3/uL (130-450); RED BLOOD COUNT 4.22 10^6/uL (4.20-5.40); RED CELL DISTRIBUTION WIDTH 13.3 % (12.0-15.0); WHITE BLOOD COUNT 7.9 x10^3/uL (4.8-10.8)
[2022-05-27 08:57] LABS: ALBUMIN 3.8 g/dL (3.2-5.5); ALBUMIN/GLOBULIN RATIO 1.1 (1.0-2.2); ALKALINE PHOSPHATASE 61 IU/L (42-121); ALT ALANINE AMINOTRANSFERASE 26 IU/L (10-60); AST ASPARTATE AMINOTRANSFERASE 18 IU/L (10-42); BILIRUBIN,TOTAL 0.7 mg/dL (0.2-1.0); BUN - BLOOD UREA NITROGEN 17 mg/dL (6-20); CALCIUM 9.1 mg/dL (8.5-10.3); CARBON DIOXIDE - CO2 25 mmol/L (21-32); CHLORIDE 100 mmol/L (101-111); CHOL/HDL RATIO 3.2 (<4.4); CHOLESTEROL 167 mg/dL; CREATININE 0.8 mg/dL (0.4-1.0); GFR - MDRD 75 (>89); GLUCOSE 114 mg/dL (70-100); HDL CHOLESTEROL 53 mg/dL; LDL CHOLESTEROL,CALCULATED 81 mg/dL; LDL/HDL RATIO 1.5 (<4.4); SODIUM 136 mmol/L (135-145); TOTAL PROTEIN 7.4 g/dL (6.7-8.2); TRIGLYCERIDES 167 mg/dL; VLDL CHOLESTEROL 33 mg/dL
[2022-05-27 09:06] LABS: THYROID STIMULATING HORMONE 3.64 uIU/mL (0.34-5.60)
== END 2022-05-27 08:20 | disposition home or self-care (01) ==
LOC: LAB 08:19
PROVIDERS: ATTEND Registered Nurse
DX: I10 Essential (primary) hypertension (principal); Z13.220 Encounter for screening for lipoid disorders; Z13.1 Encounter for screening for diabetes mellitus
CPT/HCPCS: 36415; 80053; 80061; 83721; 84443; 85025

== ENCOUNTER 2023-09-26 08:21 | Outpatient (CLI) | payer OTHER ==
[2023-09-26 08:37] LABS: BASOPHILS # (AUTO) 0.1 10^3/uL (0.0-0.1); BASOPHILS % (AUTO) 1.3 %; EOSINOPHILS # (AUTO) 0.4 10^3/uL (0.0-0.7); EOSINOPHILS % (AUTO) 4.9 %; HCT - HEMATOCRIT 31.6 % (37.0-47.0); HGB - HEMOGLOBIN 9.1 g/dL (12.0-16.0); LYMPHOCYTES # (AUTO) 2.2 10^3/uL (1.5-3.5); LYMPHOCYTES % (AUTO) 30.2 %; MEAN CORPUSCULAR HEMOGLOBIN 25.7 pg (27.0-31.0); MEAN CORPUSCULAR HGB CONC 28.8 g/dL (32.0-36.0); MEAN CORPUSCULAR VOLUME 89.3 fL (81.0-99.0); MEAN PLATELET VOLUME 9.8 fL (7.9-10.8); MONOCYTES # (AUTO) 0.3 10^3/uL (0.0-1.0); MONOCYTES % (AUTO) 4.5 %; NEUTROPHILS # (AUTO) 4.3 10^3/uL (1.5-6.6); PLT - PLATELET COUNT 367 10^3/uL (130-450); RED BLOOD COUNT 3.54 10^6/uL (4.20-5.40); RED CELL DISTRIBUTION WIDTH 13.6 % (12.0-15.0); WHITE BLOOD COUNT 7.2 x10^3/uL (4.8-10.8)
[2023-09-26 08:59] LABS: ALBUMIN/GLOBULIN RATIO 1.4 (1.0-2.2); ALKALINE PHOSPHATASE 68 IU/L (42-121); ALT ALANINE AMINOTRANSFERASE 14 IU/L (10-60); AST ASPARTATE AMINOTRANSFERASE 12 IU/L (10-42); BILIRUBIN,TOTAL 0.3 mg/dL (0.2-1.0); BUN - BLOOD UREA NITROGEN 16 mg/dL (6-20); CALCIUM 9.4 mg/dL (8.5-10.3); CARBON DIOXIDE - CO2 27 mmol/L (21-32); CHLORIDE 105 mmol/L (101-111); CHOLESTEROL 158 mg/dL; CREATININE 0.8 mg/dL (0.6-1.3); GFR - MDRD 75 (>89); GLUCOSE 131 mg/dL (74-104); HDL CHOLESTEROL 53 mg/dL; LDL CHOLESTEROL,CALCULATED 63 mg/dL; LDL/HDL RATIO 1.2 (<4.4); POTASSIUM 4.2 mmol/L (3.5-4.5); SODIUM 139 mmol/L (135-145); TOTAL PROTEIN 6.8 g/dL (6.4-8.9); TRIGLYCERIDES 212 mg/dL (48-352); VLDL CHOLESTEROL 42 mg/dL
[2023-09-26 09:11] LABS: THYROID STIMULATING HORMONE 4.94 uIU/mL (0.34-5.60)
== END 2023-09-26 08:22 | disposition home or self-care (01) ==
LOC: LAB 08:21
PROVIDERS: ATTEND Registered Nurse
DX: Z13.220 Encounter for screening for lipoid disorders (principal); Z79.899 Other long term (current) drug therapy; Z13.29 Encounter for screening for other suspected endocrine disorder
CPT/HCPCS: 36415; 80053; 80061; 83721; 84443; 85025

== ENCOUNTER 2023-09-27 15:33 | Outpatient (CLI) | payer OTHER ==
[2023-09-27 15:49] LABS: BASOPHILS # (AUTO) 0.1 10^3/uL (0.0-0.1); BASOPHILS % (AUTO) 0.8 %; EOSINOPHILS # (AUTO) 0.3 10^3/uL (0.0-0.7); EOSINOPHILS % (AUTO) 3.3 %; HCT - HEMATOCRIT 30.4 % (37.0-47.0); HGB - HEMOGLOBIN 8.8 g/dL (12.0-16.0); LYMPHOCYTES # (AUTO) 2.7 10^3/uL (1.5-3.5); LYMPHOCYTES % (AUTO) 32.2 %; MEAN CORPUSCULAR HEMOGLOBIN 25.7 pg (27.0-31.0); MEAN CORPUSCULAR HGB CONC 28.9 g/dL (32.0-36.0); MEAN CORPUSCULAR VOLUME 88.6 fL (81.0-99.0); MEAN PLATELET VOLUME 9.2 fL (7.9-10.8); MONOCYTES # (AUTO) 0.5 10^3/uL (0.0-1.0); MONOCYTES % (AUTO) 5.4 %; NEUTROPHILS # (AUTO) 4.9 10^3/uL (1.5-6.6); NEUTROPHILS % (AUTO) 57.9 %; PLT - PLATELET COUNT 354 10^3/uL (130-450); RED BLOOD COUNT 3.43 10^6/uL (4.20-5.40); RED CELL DISTRIBUTION WIDTH 13.7 % (12.0-15.0); WHITE BLOOD COUNT 8.4 x10^3/uL (4.8-10.8)
[2023-09-27 16:29] LABS: FERRITIN 5.5 ng/mL (11.0-306.8)
[2023-09-27 20:32] LABS: ESTIMATED AVERAGE GLUCOSE 134 mg/dL (70-100); HEMOGLOBIN A1c% 6.3 % (4.27-6.07)
== END 2023-09-27 15:34 | disposition home or self-care (01) ==
LOC: LAB 15:33
PROVIDERS: ATTEND Registered Nurse
DX: D64.9 Anemia, unspecified (principal); R73.9 Hyperglycemia, unspecified
CPT/HCPCS: 36415; 82607; 82728; 82746; 83036; 83540; 84466; 85025